=== PATIENT | female | born 1950 | race Caucasian/White ===

== ENCOUNTER 2020-08-12 12:40 | Emergency (ER) | payer MEDICARE, MEDICAID, SELFPAY ==
[2020-08-12 14:16] VITALS: BP 177/98; PULSE 74; RESP 16; TEMP 37; O2SAT 99; BMI 25.0
--- NOTE | 2020-08-12 14:24 | ECG_ITS ---
Test Reason : HEADACHE Blood Pressure : / mmHG Vent. Rate : 072 BPM Atrial Rate : 072 BPM P-R Int : 188 ms QRS Dur : 086 ms QT Int : 426 ms P-R-T Axes : 032 -15 033 degrees QTc Int : 466 ms Normal sinus rhythm Normal ECG When compared with ECG of 22-FEB-2018 09:19, DC interval has decreased Referred By: Britany Araya Electronically Signed By:ANANYA BENJAMIN MD
--- NOTE | 2020-08-12 14:29 | ED_ITS ---
HPI - Headache General Chief Complaint: Headache Stated Complaint: HBP, Headache, Dizziness Time Seen by Provider: 08/12/20 14:06 Source: patient Mode of arrival: ambulatory Limitations: language barrier ( Slovenian-speaking) History of Present Illness HPI Narrative: patient comes to emergency room complaining of a headache and high blood pressure. Patient states since yesterday she has had posterior headache, no neck pain. Patient checked her blood pressure and her monitor read as high . Patient states she usually takes carvedilol 40 mg twice a day, she ran out of carvedilol over a week ago. When patient came in, she states she has dizziness, describes dizziness as feeling funny, denies loss of balance, denies room spinning, denies feeling lightheaded. Related Data Previous Rx's Medication Instructions Recorded carvedilol 25 mg PO BID #14 tab 08/12/20 Allergies Allergy/AdvReac Type Severity Reaction Status Date / Time No Known Allergies Allergy Verified 08/12/20 14:23 Review of Systems Review of Systems: Constitutional : No Weight loss, No Fever, No Chills, No Night Sweats, No Fatigue, No Malaise ENT/Mouth : No Hearing loss, No Ear Pain, No Nasal Congestion, No Sinus Pain, No Hoarseness, No sore throat, No Rhinorrhea, No Swallowing Difficulty Eyes: No Eye Pain, No Swelling, No Redness, No Foreign Body, No Discharge, No Vision Changes Cardiovascular : No Chest Pain, No SOB, No Dyspnea on Exertion, No Orthopnea, No Edema, No Palpitations Respiratory : No Cough, No Sputum, No Wheezing, No Smoke Exposure, No Dyspnea Gastrointestinal : No Nausea, No Vomiting, No Diarrhea, No Constipation, No abd ominal Pain, No Hematochezia, No Melena Genitourinary : no irregular bleeding, No Dysuria, No Urinary Frequency, No Hematuria, No Urinary Incontinence, No Urgency, No Flank Pain, No Urinary Flow Changes, No Hesitancy Musculoskeletal : No joint pain, No Myalgias, No Joint Swelling Skin : No Skin Lesions, No rash Neuro : No Weakness, No Numbness, No Paresthesias, No Loss of Consciousness, Complaining of dizziness and headache Psych : No Anxiety/Panic, No Depression, No SI/HI/AH/VH, No Social Issues, Heme/Lymph: No Bruising, No Bleeding,No Lymphadenopathy Endocrine : No Polyuria, No Polydipsia, No Temperature Intolerance [facility] Past Medical History Medical History Arthritis Diabetes Hyperlipemia Hypertension Social History Social History Advance Directives: No Advance Directives Information Provided: No Physical Exam Vital Signs: Vital Signs: Vital Signs Temp Pulse Resp BP Pulse Ox 08/12/20 15:01 70 130/85 98 08/12/20 14:38 74 159/93 H 08/12/20 14:16 98.6 F 74 16 177/98 H 99 Body Mass Index 25.0 Appearance: Alert. Oriented X3. No acute distress. Eyes: Pupils equal, round and reactive to light. ENT: Pharynx normal. Neck: Normal inspection. Neck supple. No lymph nodes noted. No crepitus CVS: Normal heart rate and rhythm. Pulses normal. Normal S1 and S2 Respiratory: No respiratory distress. Breath sounds normal. No Wheezing. No rales Abdomen: Soft and nontender. No rigidity. No distention. good BS x4 Skin: Skin warm and dry. Normal skin color. Normal skin turgor. Extremities: No lower extremity edema. No lower extremity edema. No Lacerations. No Rash Neuro: Oriented X 3. No motor deficit. No sensory deficit. Moving all extermities. No slurred speech. Course Course Course Narrative: patient received 200 mg of p.o. labetalol, patient's blood pressure 131 systolic, states she feels much better, headache completely gone. MDM - Headache MDM Narrative Medical decision making narrative: I discussed with the patient, 40 mg of Carvedilol twice a day is a high dose, she has not been on her medications for over a week. For 1 week she will be prescribed carvedilol 25 mg twice a day and then she can follow up with the primary care physician and confidential investigator. ECG Data Attestation: I personally reviewed and interpreted this ECG as follows: ( sinus rhythm, heart rate 72, QTC 466, no ST segment elevations or depressions, nonspecific T-wave inversions) Discharge Plan Discharge Clinical Impression: Hypertensive urgency Headache Qualifiers: Headache type: unspecified Headache chronicity pattern: unspecified pattern Intractability: not intractable Qualified Code(s): R51.9 - Headache, unspecified Patient Disposition: Home, Self-Care Instructions: Chronic Hypertension (ED) Additional Instructions: please follow-up with your confidential investigator and your primary care physician. Please follow-up with your primary care physician tomorrow. If you have any worsening or new symptoms, please return to the emergency room or call 911 Prescriptions: New carvedilol 25 mg tablet 25 mg PO BID Qty: 14 RF: 0
[2020-08-12 14:38] VITALS: BP 159/93; PULSE 74
[2020-08-12] MEDS: Labetalol HCL 200 MG TABLET PO (14:38)
[2020-08-12] MEDS: Acetaminophen 325 MG TABLET 650 MG PO (14:38)
--- NOTE | 2020-08-12 14:39 | PC.NURSE ---
PT TRIAGED C/O HEADACHE X 2 DAYS, RAN OUT OF CARVEDILOL 1 WK AGO. BPS RUNNING HIGH AT HOME. REPORTING DIZZINESS, DESCRIBED SPINNING SENSATION. PT A&OX3, SPEAKING IN CLEAR FULL SENTENCES. SKIN COLOUR APPROPRIATE FOR ETHNICITY, WARM, DRY. RESTING COMFORTABLY IN STRETCHER AT THIS TIME. MEDICATED PER EMR.
[2020-08-12 15:01] VITALS: BP 130/85; PULSE 70; O2SAT 98
== END 2020-08-12 15:27 | disposition home or self-care (01) ==
PROVIDERS: Emergency Provider Emergency Medicine; PCP Family Medicine
DX: R51.9 Headache, unspecified (principal); I10 Essential (primary) hypertension; Z79.899 Other long term (current) drug therapy
CPT/HCPCS: 93005; 99283; 99284

== ENCOUNTER → 2020-09-24 12:43 | Outpatient (BNVA) | payer MEDICARE, MEDICAID, SELFPAY | PROVIDERS: PCP Family Medicine; Visit Provider Internal Medicine | DX: I51.89 Other ill-defined heart diseases (principal); I12.9 Hypertensive chronic kidney disease with stage 1 through stage 4 chronic kidney disease, or unspecified chronic kidney disease; N18.9 Chronic kidney disease, unspecified | CPT/HCPCS: 93005; 99212 ==

== ENCOUNTER → 2021-09-26 12:26 | Outpatient (BNVA) | payer MEDICARE, MEDICAID, SELFPAY | PROVIDERS: PCP Family Medicine; Referring Provider Family Medicine; Visit Provider Internal Medicine | DX: I12.9 Hypertensive chronic kidney disease with stage 1 through stage 4 chronic kidney disease, or unspecified chronic kidney disease (principal); N18.9 Chronic kidney disease, unspecified; R07.2 Precordial pain; I51.89 Other ill-defined heart diseases | CPT/HCPCS: 93005; 99212 ==

== ENCOUNTER → 2021-10-03 07:52 | Outpatient (REF) | payer MEDICARE, MEDICAID, SELFPAY ==
--- NOTE | ~2021-10-03 | NM_ITS ---
Myocardial perfusion study Indication: Precordial pain to evaluate for myocardial ischemia Technique: The patient was brought in for a Lexiscan perfusion study on 10/03/2021. Patient performed low-level exercise and was injected 0.4 mg of Lexiscan intravenously. Within a minute of injection, 25 mCi of sestamibi was given intravenously. Images were obtained using the SPECT gamma camera interlaced with the gating device. Images were obtained in supine position. Resting perfusion study was performed on 10/04/2021. Patient was administered 25 mCi of sestamibi intravenously at rest. Images were then obtained in supine position. Images were obtained with and without CT attenuation. Total DLP 85 mGy-cm. Images were processed with the software and compared side to side in short axis, horizontal long axis and vertical long axis views. Findings: The stress perfusion study showed non attenuated images show normal uptake of radiotracer in all segments of LV myocardium. Attenuation corrected images show mildly reduced uptake in the apex of the LV myocardium.. The gated study shows normal LV systolic function with calculated LVEF of 57%. LV cavity is normal in size. The gated study shows normal systolic wall thickening and contraction of segments. Resting study shows no significant change in perfusion in compared to stress perfusion study. Gating at rest reveals normal systolic wall motion with ejection fraction at 65%. The findings are consistent with no clear reversible defect suggestive of ischemia.. NM/NM cardiolite stress test Impression: 1. Myocardial perfusion imaging study shows likely normal myocardial perfusion 2. Gated LVEF is 57% 3. Transient ischemic dilatation not present EKG is nondiagnostic for ischemia
--- NOTE | 2021-10-03 07:56 | CA_ITS ---
Acquisition Time: 2021-10-03 08:35:36 Total Exercise Time: 00:00:41 Test Indications: CP Medications: SEE CHART Protocol: SHAHRIAR Max HR: 105 BPM 70% of Pred: 150 BPM Max BP: 118/070 mmHG Max Work Load: 2.2 METS Exercise stress test with exercise 41 sec of Shahriar protocol, with difficutly keeping up with treadmill and need to slow speed. Treadmill placed in recovery and slowed to 1 MPH, test changed to a pharmacological stress test with Lexiscan injection, with report of chest pressure once in recovery, with normotensive response to injection, with nondiagnostic EKG for ischemia. In recovery her chest pressure continued and at 8 min she was treated with Aminophylline 75mg IVP to reverse Lexiscan with improvement in symptom. Nuclear images pending. Test reviewed with Dr Rowan. Referred By: William Henry Overread By: HERBERTH MEDINA
== END ==
LOC: HO.CARD 07:52
PROVIDERS: PCP Family Medicine; Visit Provider Internal Medicine
DX: R07.2 Precordial pain (principal)
CPT/HCPCS: 78452; 93017; A9500; J0280; J2785

== ENCOUNTER → 2021-10-16 12:17 | Outpatient (BNVA) | payer MEDICARE, MEDICAID, SELFPAY | PROVIDERS: PCP Family Medicine; Referring Provider Family Medicine; Visit Provider Nurse Practitioner Family | DX: R07.2 Precordial pain (principal); I10 Essential (primary) hypertension; E11.9 Type 2 diabetes mellitus without complications; E78.5 Hyperlipidemia, unspecified | CPT/HCPCS: 99212 ==

== ENCOUNTER → 2021-12-18 07:39 | Outpatient (REF) | payer MEDICARE, MEDICAID, SELFPAY ==
--- NOTE | 2021-12-18 07:42 | CA_ITS ---
Transthoracic Echocardiogram Patient (Last, First, Middle): Natalie Mccloud, Gender: Female Date of : 1950 Age: 71 Procedure Date: 12/18/2021 Procedure Type: Transthoracic Echocardiogram Location: OP Height: 152.4 cm Weight: 58.97 kg BSA: 1.55 m2 Heart Rate: bpm BP: 122 / 60 mmHg Veneer Cutter: [id number] Referring MD: Ashleigh Hu [employer]-C Drip Molder: Adalberto Rowan MD Symptoms: R07.2 - Precordial pain Study Quality: Technically Difficult ECG Rhythm: Sinus Conclusions: - 1. Technically difficult study 2. Normal LV systolic function 3. Limited visualization of cardiac valves with trace aortic regurgitation Findings Procedure Information Contrast agent, definity, is being given per protocol without apparent complications. Left Ventricle Normal left ventricular size, thickness, and systolic function. The visually estimated ejection fraction is between 60-65%. Spectral Doppler is indicative of an impaired relaxation filling pattern. E/E prime ratio is between 8 and 15 consistent with indeterminate filling pressures. Right Ventricle The right ventricle was not well visualized. Atria The left atrium is normal in size. Interatrial shunt cannot be excluded. The right atrium was not well visualized. Aortic Valve The aortic valve was not well visualized. There is no aortic valve stenosis. There is trace (trivial) aortic valve regurgitation. Mitral Valve Likely normal mitral valve structure and function. There is no mitral valve stenosis. Pulmonic Valve The pulmonic valve was not well visualized. Tricuspid Valve The tricuspid valve was not well visualized. Tricuspid regurgitation envelope is inadequate for calculation of right ventricular systolic pressure. Great Vessels The aorta was not well visualized. The pulmonary artery was not well visualized. Venous The inferior vena cava is normal in size and collapses greater than 50% with inspiration. Pericardium/Pleural The pericardium was not well visualized. Prior Study Comparison No significant change compared to prior study dated: 05/21/2017. Measurements 2D Linear Measurements IVSd: 0.91 0.6-0.9/0.6-1.0 cm LVIDd: 4.35 3.9-5.3/4.2-5.9 cm LVIDd Index: 2.81 2.4-3.2/2.2-3.1 cm/m2 LVIDs: 2.69 2.0-3.6 cm LVPWd: 1.07 0.7-1.1 cm Ao Root: 3.50 2.1-3.5 cm LA Diam: 2.70 2.7-3.8/3.0-4.0 cm LAIDs Index: 1.74 1.5-2.3 cm/m2 LV Mass: 177.93 67-162/88-224 g LV Mass Index: 114.79 43-95/49-115 g/m2 LVOT Diam: 2.00 3.0+(-)1.3 cm Mitral Valve MV Pk E: 0.51 MV PK A: 0.76 MV Decel Time: 190.00 E/A: 0.70 E'Lateral: 4.90 E'Medial: 4.46 E/E' Med: 11.50 E/E' Lat: 10.50 PHT: 56.00 MVA PHT: 3.93 Decel Clark: 2.71 Aortic Valve AoV Pk Mike: 1.11 AoV Mn Mike: 0.75 AoV VTI: 0.26 AoV Pk Grad: 5.00 Aov Mn Grad: 3.00 RANDY Cont.VTI: 2.38 LVOT LVOT Pk Mike: 0.76 LVOT Mn Mike: 0.52 LVOT VTI: 0.19 LVOT Pk Grad: 2.00 LVOT Mn Grad: 1.00 LVOT Diam: 2.00 LVOT Area: 3.14 Diastolic Function MV Pk E: 0.51 MV Pk A: 0.76 E/A: 0.70 E'Medial: 4.46 E/E' Med: 11.50 E' Laterial: 4.90 E/E' Lat: 10.50 Right Ventricle TAPSE (mm): 22.00 TVS' Mike: 10.00 Tricuspid Valve TR Pk Mike: 1.57 TR Pk Grad: 10.00 Great Vessels Aorta Ao Root-2D: 3.50 2.0-3.7 cm Pulmonary Valve PV Pk Mike: 0.92 Peak PV Grad: 3.00 Updated in Other Vendor System with Status of Final Adalberto Rowan MD electronically signed on 12/18/2021 9:20:11 PM with status of Final
== END ==
LOC: HO.CARD 07:39
PROVIDERS: PCP Family Medicine; Visit Provider Nurse Practitioner Family
DX: R07.2 Precordial pain (principal)
CPT/HCPCS: 93306; Q9957

== ENCOUNTER → 2022-01-15 13:36 | Outpatient (BNVA) | payer MEDICARE, MEDICAID, SELFPAY | PROVIDERS: PCP Family Medicine; Referring Provider Family Medicine; Visit Provider Nurse Practitioner Family | DX: R07.2 Precordial pain (principal); E11.9 Type 2 diabetes mellitus without complications; E78.5 Hyperlipidemia, unspecified; I10 Essential (primary) hypertension | CPT/HCPCS: 99212 ==

== ENCOUNTER 2022-02-04 08:14 | Emergency (ER) | payer MEDICARE, MEDICAID, SELFPAY ==
--- NOTE | ~2022-02-04 | XR_ITS ---
EXAMINATION: XR LUMBOSACRAL SPINE CLINICAL INFORMATION: Right back pain radiating to leg COMPARISON: CT abdomen and pelvis of September 20, 2019 TECHNIQUE: Three views of the lumbosacral spine. FINDINGS: There are 5 nonrib bearing lumbar vertebra. Pedicles are intact. Mild narrowing of the L5-S1 disc space. No acute fracture, spondylolisthesis, spondylolysis identified. No significant sacroiliac joint abnormality is present. There is some mildly increased density about the right L5-S1 facet joint consistent with some degree of facet arthropathy. There is a 4 mm calcification about the right upper quadrant which appears to be more superior than I would expect for the right kidney and may represent gallbladder calcification. This was present on previous study of February 28, 2013. 2 calcified splenic artery aneurysms are evident. Psoas margins intact. 2 mm calcification seen just inferior to the left L1 transverse process of uncertain significance. XR/XR lumbar spine 2-3V IMPRESSION: No acute fracture, spondylolisthesis, spondylolysis of the lumbar spine. Lumbar spondylosis L5-S1 as described. Probable cholelithiasis. 2 calcified splenic artery aneurysms.
[2022-02-04 09:07] VITALS: BP 138/85; PULSE 66; RESP 16; TEMP 36.9; O2SAT 99; BMI 22.6
--- NOTE | 2022-02-04 09:32 | ED.BACK ---
HPI - Back Pain/Injury General Chief Complaint: Back Pain/Injury Stated Complaint: Back pain/leg pain Time Seen by Provider: 02/04/22 09:28 Source: patient Mode of arrival: ambulatory Limitations: language barrier (Japanese-speaking medical assistant supervisor utilized) History of Present Illness HPI Narrative: Patient presents to the emergency department for evaluation of right lower back pain radiating down to the buttock and leg x2 days. Denies any history of similar pain in the past. She has been taking Tylenol with no relief. Denies recent precipitating injury, fevers, chills, burning with micturition, urinary frequency/urgency/hesitancy, bladder or bowel dysfunction, numbness or tingling of the perineum or bilateral legs. Denies any recent surgical procedures, any known immune compromising conditions, personal history of cancer, or IV drug usage. MD elicited complaint: back pain Related Data Home Medications Medication Instructions Recorded Confirmed alprazolam 0.25 mg tablet 0.25 mg PO DAILY PRN 09/24/20 01/17/22 chlorthalidone 25 mg tablet 25 mg PO tab 09/24/20 01/17/22 hydroxyzine HCl 25 mg tablet 25 mg PO TID 09/24/20 01/17/22 lisinopril 30 mg tablet 30 mg PO DAILY 09/24/20 01/17/22 cholecalciferol (vitamin D3) 50 0 mcg PO 09/26/21 01/17/22 mcg (2,000 unit) tablet ezetimibe 10 mg tablet 10 mg PO DAILY 09/26/21 01/17/22 glipizide 2.5 mg tablet, extended 2.5 mg PO QPM 09/26/21 01/17/22 release 24 hr pravastatin 40 mg tablet 40 mg PO DAILY tab 09/26/21 01/17/22 Previous Rx's Medication Instructions Recorded carvedilol 25 mg tablet 25 mg PO BID #14 tab 08/12/20 tizanidine 2 mg tablet 2 mg PO BEDTIME PRN #7 tab 02/04/22 Allergies Allergy/AdvReac Type Severity Reaction Status Date / Time No Known Allergies Allergy Verified 10/16/21 12:36 Review of Systems Review of Systems: Constitutional: No weight loss, fever, chills, weakness or fatigue. HEENT: No visual loss, blurred vision, double vision. No hearing loss, sneezing, congestion, runny nose or sore throat. Skin: No rash or itching. Cardiovascular: No chest pain, chest pressure or chest discomfort. No palpitations or pedal edema. Respiratory: No shortness of breath, cough or sputum production. Gastrointestinal: No anorexia, nausea, vomiting or diarrhea. No abdominal pain or blood in stool. Genitourinary: No burning micturition. No urinary frequency or incontinence. Neurologic: No headache, dizziness, syncope, unilateral weakness, ataxia, numbness or tingling in the extremities. No change in bowel or bladder control. Musculoskeletal: + Back pain as noted in HPI. No joint pain or stiffness. Hematologic: No bleeding or bruising. Lymphatics: No enlarged lymph nodes. Psychiatric:No depression or anxiety. Endocrine: No reports of sweating. No cold or heat intolerance. No polyuria or polydipsia. FOR[facility]LY [facility], [facility] Past Medical History Attestation statement: The following information was validated with the patient. Source: old records reviewed Medical History Arthritis Chronic kidney disease, unspecified Diabetes Diastolic dysfunction Essential hypertension Hyperlipemia Hypertension Surgical History History of colonoscopy (~04/2015) Family History Family History Father No problems noted. Mother No problems noted. Social History Social History Patient Tobacco Use Status: Never used Tobacco Advance Directives: No Advance Directives Information Provided: No Physical Exam Vital Signs: Vital Signs: Last Vital Signs Temp 98.4 F 02/04/22 09:07 Pulse 66 02/04/22 09:07 Resp 16 02/04/22 09:07 BP 138/85 02/04/22 09:07 Pulse Ox 99 02/04/22 09:07 BMI result Body Mass Index 22.6 Vital signs have been reviewed as normal and appeared to be correct. Blood pressure normal.? Heart rate normal.? Respiration rate normal. Temperature normal.? Oxygen saturation normal. Appearance: Alert.?Oriented to person, place and time. No acute distress.?Normal affect. Eyes: Pupils equal, round and reactive to light.? ENT: Pharynx normal.?? Neck: Normal inspection.? Neck supple.?? CVS: Heart sounds normal. Normal heart rate and rhythm.? Pulses normal; bilateral radial pulses 2+, bilateral posterior tibial/dorsalis pedis pulses 2+.? Respiratory: No respiratory distress.? Lung sounds clear to auscultation bilaterally?? Abdomen: Soft and non-tender. Normoactive bowel sounds. No pulsatile mass.?? Skin: Skin warm and dry.? Normal skin color.? Normal skin turgor.?? Extremities: No lower extremity edema.? No calf ttp? Back: + mild paraspinal muscular tenderness from lumbar region to coccyx. No CVA tenderness. No midline spinal tenderness, step-off's, or deformity. Full ROM intact in bilateral lower extremities. Straight leg test positive on right; Straight leg test negative on left. No rashes, lesions, areas of induration or fluctuance, or signs of infection noted. Neuro: Moves all extremities spontaneously. 5/5 strength in hip extension/flexion, abduction, adduction. Sensation to light touch intact bilaterally. Patellar and Achilles reflex 2+ bilaterally. No ataxia, gait normal and steady.. No focal neuro deficits. Rectal tone intact. Course Course Course Narrative: Patient is a 72-year-old female with a past medical history of arthritis, chronic kidney disease, diabetes, hypertension, hyperlipidemia presenting for evaluation of right lower back pain radiating into the right buttock and leg without precipitating injury. Patient received Tizanadine while in the emergency department with improvement in pain, requesting a prescription to go home with as the pain is making it very difficult for her to sleep at night, discussed that she is not to take alprazolam will take this medication, drink alcohol, or drive. Advised that the medication may make her drowsy, and therefore there is potential for increased risk of fall. X-ray of the lumbar spine reveals no acute fracture, lumbar spondylosis of L5-S1. Incidental finding of cholelithiasis and 2 calcified splenic artery aneurysms, patient is without abdominal pain, tenderness on examination, discussed these findings with patient and advised outpatient follow-up with vascular for further management. Pain is most consistent with muscular pain/ radiculopathy, although cannot completely exclude herniated disc. On neurological exam there are no deficits. Not consistent with spinal fracture, spinal infection, epidural abscess, AAA, epidural abscess, or dissection. No high risk past medical history including incontinence, fever, immunosuppression, recent surgery or lumbar puncture, coagulopathy, significant trauma, recent unintentional weight loss, pulsatile mass, history of cancer, history of TB, history of IV drug use that would warrant MRI or CT. Not consistent with pyelonephritis, urinary tract infection, renal calculi, pelvic infection, appendicitis, diverticulitis. On exam no concern for cauda equina syndrome. Plan for discharge home, and follow-up with primary care provider, reviewed reasons to return back to the emergency department, and patient agreed with plan. MDM - Back Pain/Injury Medical Records Attestation: I reviewed the patient's medical records. Lab Data Attestation: I reviewed the patient's lab results. Labs: Lab Results 02/04/22 Range/Units 10:03 Urine Color YELLOW Urine Appearance CLEAR Urine pH 5.5 (5.0-8.0) Ur Specific [place] 1.015 (1.005-1.025) Urine Protein NEG (NEG-TRACE) MG/DL Urine Glucose (UA) NEG (NEG) MG/DL Urine Ketones NEG (NEG) MG/DL Urine Blood 2+ H (NEG) Urine Nitrite NEG (NEG) Ur Leukocyte Esterase NEG (NEG) Urine RBC 1-4 (0) /HPF Urine WBC 0-2 (0-4) /HPF Ur Squamous Epith Cells 1+ /LPF Urine Bacteria NONE /LPF Imaging Data XR lumbar spine: Radiologist's impression: XR/XR lumbar spine 2-3V IMPRESSION: No acute fracture, spondylolisthesis, spondylolysis of the lumbar spine. Lumbar spondylosis L5-S1 as described. ? Probable cholelithiasis. ? 2 calcified splenic artery aneurysms. Discharge Plan Discharge Clinical Impression: Right lumbar radiculopathy, Splenic artery aneurysm, Hematuria Patient Disposition: Home, Self-Care Instructions: Hematuria (ED), Acute Low Back Pain (ED), Lumbar Radiculopathy (ED), Lower Back Exercises (ED) Additional Instructions: Please contact her primary care provider to schedule a follow-up visit within 1 week. As we discussed you may use Tylenol as needed for your back pain. You have been given a prescription for tizanidine, this is a muscle relaxer, it should be used with extreme caution, and only at bedtime. It may make you drowsy, you should not drive, drink alcohol while taking this medication. In addition, as we discussed you are not to take your alprazolam at night if you are going to take the tizanidine. If you take the 2 together it may worsen your drowsy mass and may lead to possible falls or further injury. Your urine continues to have microscopic blood present. It is unclear whether you were referred to a urologist from your primary care provider, you should discuss this with them at your follow-up visit next week, as you may need further evaluation for this by a specialist. There was an incidental finding of 2 splenic artery calcified aneurysms. For this you need to follow-up with vascular specialist, please contact our office to schedule an appointment. please return to the emergency department for further evaluation if he develops abdominal pain, shoulder pain, dizziness, lightheadedness, palpitations, weakness or any new or concerning symptoms. Prescriptions: New tizanidine 2 mg tablet 2 mg PO BEDTIME PRN (Reason: muscle spasticity) Qty: 7 0RF No Action carvedilol 25 mg tablet 25 mg PO BID Qty: 14 0RF Rx Instructions: must administer with a meal/food alprazolam 0.25 mg tablet 0.25 mg PO DAILY PRN0RF hydroxyzine HCl 25 mg tablet 25 mg PO TID 0RF lisinopril 30 mg tablet 30 mg PO DAILY 0RF chlorthalidone 25 mg tablet 25 mg PO 0RF pravastatin 40 mg tablet 40 mg PO DAILY 0RF ezetimibe 10 mg tablet 10 mg PO DAILY 0RF cholecalciferol (vitamin D3) 50 mcg (2,000 unit) tablet 0 mcg PO 0RF glipizide 2.5 mg tablet extended release 24hr 2.5 mg PO QPM 0RF Referrals: Graham Jay MD [Physician] - 1 week (Calcified splenic artery aneurysm) Fani Goodrich MD [Primary Care Provider] - 1 week Interventions: ED Discharge Assessment Last Done: 02/04/22 13:04 Discharge Date/Time: 02/04/22 13:06
[2022-02-04] MEDS: TiZANidine HCL 4 MG TABLET PO (10:08)
[2022-02-04 10:21] LABS: Appearance Urine CLEAR; Color Urine YELLOW; Glucose Urine UA NEG (NEG); Leukocyte Esterase Urine NEG (NEG); Nitrite Urine NEG (NEG); PH 5.5 (5.0-8.0); Specific Gravity - Urine 1.015 (1.005-1.025); UACC Culture Trigger NO; Urine Blood 2+ (NEG); Urine Ketones NEG (NEG); Urine Protein NEG (NEG-TRACE)
[2022-02-04 11:48] LABS: Squamous Epithelial Cell Urine 1+ /LPF; WBC Urine 0-2 /HPF (0-4)
== END 2022-02-04 13:06 | disposition home or self-care (01) ==
PROVIDERS: Nurse Practitioner Family; Emergency Provider Emergency Medicine; PCP Family Medicine
DX: M54.16 Radiculopathy, lumbar region (principal); R31.9 Hematuria, unspecified; M54.50 Low back pain, unspecified; M79.605 Pain in left leg; M79.604 Pain in right leg; Z79.899 Other long term (current) drug therapy
CPT/HCPCS: 72100; 81001; 99283; 99284

== ENCOUNTER 2022-02-05 12:20 | Emergency (ER) | payer MEDICARE, MEDICAID, SELFPAY ==
[2022-02-05 13:02] VITALS: BP 147/89; PULSE 62; RESP 17; TEMP 36.3; O2SAT 98; BMI 22.5
--- NOTE | 2022-02-05 14:50 | ED.GENADULT ---
HPI - General Adult General Chief complaint: Extremity Problem Stated complaint: continuous pain in right leg Time Seen by Provider: 02/05/22 14:22 Source: patient Mode of arrival: ambulatory Limitations: no limitations History of Present Illness HPI narrative: 72 y/o female with history of HTN, HLD, DM, CKD, HFpEF, hx back pain who presents back to the ER for a 2nd time with c/o right lower back pain that radiated into the buttock and posterior right thigh. She was seen here yesterday for the same, had a lumbar x-ray showing some spondylosis of L5-S1 and she was discharged with low-dose tizanidine with no improvement. She reports she has also been taking Tylenol with minimal relief. She states the pain is worse at night when she tries to lie down and she not get any sleep last night because of the pain. Pain is also worse when changing positions and walking. She denies any urinary symptoms. She denied any fever chills. She denies any bowel or bladder incontinence. She denies any saddle paresthesias. MD complaint: right low back pain radiating into buttocks and leg Onset (ago): week(s) Location: back Radiation: non-radiation Severity: severe Severity scale (1-10): 8 Quality: aching and sharp Pain Consistency: constant Relieving factors: immobilization Exacerbating factors: movement Associated symptoms: denies other symptoms Treatments prior to arrival: none Related Data Home Medications Medication Instructions Recorded Confirmed alprazolam 0.25 mg tablet 0.25 mg PO DAILY PRN 09/24/20 01/17/22 chlorthalidone 25 mg tablet 25 mg PO tab 09/24/20 01/17/22 hydroxyzine HCl 25 mg tablet 25 mg PO TID 09/24/20 01/17/22 lisinopril 30 mg tablet 30 mg PO DAILY 09/24/20 01/17/22 cholecalciferol (vitamin D3) 50 0 mcg PO 09/26/21 01/17/22 mcg (2,000 unit) tablet ezetimibe 10 mg tablet 10 mg PO DAILY 09/26/21 01/17/22 glipizide 2.5 mg tablet, extended 2.5 mg PO QPM 09/26/21 01/17/22 release 24 hr pravastatin 40 mg tablet 40 mg PO DAILY tab 09/26/21 01/17/22 Previous Rx's Medication Instructions Recorded carvedilol 25 mg tablet 25 mg PO BID #14 tab 08/12/20 tizanidine 2 mg tablet 2 mg PO BEDTIME PRN #7 tab 02/04/22 oxycodone 5 mg tablet 2.5 mg PO Q8H PRN #5 tab 02/05/22 prednisone 20 mg tablet 40 mg PO DAILY #10 tab 02/05/22 Allergies Allergy/AdvReac Type Severity Reaction Status Date / Time No Known Allergies Allergy Verified 10/16/21 12:36 Review of Systems Review of Systems: Constitutional: No Fever, No Chills Cardiovascular: No Chest Pain, No SOB Gastrointestinal: No Nausea, No Vomiting, No abdominal Pain Genitourinary: No Dysuria, No Urinary Frequency, No Hematuria Musculoskeletal: + joint pain, +Myalgias Skin: No Skin Lesions, No rash Neuro: No Weakness, No Numbness, No Dizziness, No Headache Psych: No Anxiety/Panic, No Depression Heme/Lymph: No Bruising, No Lymphadenopathy Endocrine: No Polyuria, No Polydipsia [facility] Past Medical History Medical History Arthritis Chronic kidney disease, unspecified Diabetes Diastolic dysfunction Essential hypertension Hyperlipemia Hypertension Surgical History History of colonoscopy (~04/2015) Family History Family History Father No problems noted. Mother No problems noted. Social History Social History Patient Tobacco Use Status: Never used Tobacco Advance Directives: No Advance Directives Information Provided: No Physical Exam ED Vital Signs: Vital Signs - 24 hr 02/05/22 13:02 Temperature 97.4 F Pulse Rate 62 Respiratory Rate 17 Blood Pressure 147/89 H Pulse Oximetry 98 BMI result Body Mass Index 22.5 Appearance: Alert. Oriented X3. No acute distress. HEENT: normal inspection CVS: Normal heart rate and rhythm. Pulses normal. Respiratory: No respiratory distress. Skin: Skin warm and dry. Normal skin color. Normal skin turgor. No rashes. Back: normal inspection, right low lumbar soft tissue tenderness, +SI joint tenderness on the right. +straight leg raise test at 45 degrees. No CVA tenderness Extremities: normal inspection x4 Neuro: Oriented X 3. No motor deficit. No sensory deficit. Steady gait Course Course Course Narrative: 72 y/o female presents back to the ER with ongoing right lower back pain radiating into the right buttock and posterior thigh. Seen here for the same. XR lumbar spine showing no acute fracture, spondylolisthessi, spondylolysis of the lumbar spine. Lumbar spondylosis L5-S1. Discharged with tizanidine 2 mg PRN with no relief. Patient has no red flag symptoms of LBP at this time. Exam is consistent with lumbar radiulopathy. Will give dose of narcotic and prednisone and reassess. Reevaluation(s) Reevaluation #1: Pain improved after medications. She is stable for discharge home with a short course of low-dose oral narcotics and plan to follow-up with her PCP as soon as possible for further management and monitoring. Patient agrees with plan all questions were answered with staff forester. Stable for DC. Critical Care Time Critical Care Time Critical Care Time: No Discharge Plan Discharge Clinical Impression: Acute lumbar radiculopathy Patient Disposition: Home, Self-Care Instructions: Lumbar Radiculopathy (ED), Lower Back Exercises (ED) Additional Instructions: No bending, lifting or twisting. Use ice several times per day for 20 minutes at a time for the next 48 hours and then change to heat. Take medications as prescribed to help with pain and discomfort. Follow up with your Primary Care Doctor this week. If your pain worsens, if you develop new numbness, tingling, weakness, loss of function or incontinence call 911 or come back to the ER right away for evaluation. Sin doblar, levantar o torcer. Use hielo varias veces al d?a juan david 20 minutos a la vez juan david las pr?ximas 48 horas y luego cambie a calor. [place] los medicamentos seg?n lo prescrito para ayudar con el dolor y la incomodidad. Itzel un seguimiento con campbell m?dico de atenci?n primaria esta semana. Si campbell dolor empeora, si desarrolla un nuevo entumecimiento, hormigueo, debilidad, p?rdida de funci?n o incontinencia, llame al 911 o regrese a la marisela de emergencias de inmediato para nickolas evaluaci?n. Prescriptions: New oxycodone 5 mg tablet 2.5 mg PO Q8H PRN (Reason: severe pain (scale score 7-10)) Qty: 5 0RF prednisone 20 mg tablet 40 mg PO DAILY Qty: 10 0RF No Action carvedilol 25 mg tablet 25 mg PO BID Qty: 14 0RF Rx Instructions: must administer with a meal/food tizanidine 2 mg tablet 2 mg PO BEDTIME PRN (Reason: muscle spasticity) Qty: 7 0RF alprazolam 0.25 mg tablet 0.25 mg PO DAILY PRN0RF hydroxyzine HCl 25 mg tablet 25 mg PO TID 0RF lisinopril 30 mg tablet 30 mg PO DAILY 0RF chlorthalidone 25 mg tablet 25 mg PO 0RF pravastatin 40 mg tablet 40 mg PO DAILY 0RF ezetimibe 10 mg tablet 10 mg PO DAILY 0RF cholecalciferol (vitamin D3) 50 mcg (2,000 unit) tablet 0 mcg PO 0RF glipizide 2.5 mg tablet extended release 24hr 2.5 mg PO QPM 0RF Interventions: ED Discharge Assessment Last Done: 02/05/22 16:37 Discharge Date/Time: 02/05/22 16:40 Print Language: Malawian
[2022-02-05] MEDS: Lidocaine 4 % Patch ADH..PATCH 1 PATCH TRANSDERMA (15:28)
[2022-02-05] MEDS: HYDROcodone Bit/Acetam 5/325 TABLET 1 TAB PO (15:29)
[2022-02-05] MEDS: Ondansetron ODT 4 MG TAB.RAPDIS TRANSLINGU (15:29)
[2022-02-05] MEDS: predniSONE 20 MG TABLET 40 MG PO (15:29)
== END 2022-02-05 16:40 | disposition home or self-care (01) ==
PROVIDERS: Emergency Provider Emergency Medicine
DX: M54.16 Radiculopathy, lumbar region (principal); E11.22 Type 2 diabetes mellitus with diabetic chronic kidney disease; I13.0 Hypertensive heart and chronic kidney disease with heart failure and stage 1 through stage 4 chronic kidney disease, or unspecified chronic kidney disease; N18.9 Chronic kidney disease, unspecified; I50.30 Unspecified diastolic (congestive) heart failure
CPT/HCPCS: 99283; 99284

== ENCOUNTER 2022-03-03 12:19 | Emergency (ER) | payer MEDICARE, MEDICAID, SELFPAY ==
--- NOTE | ~2022-03-03 | CT_ITS ---
EXAMINATION: CT ABDOMEN AND PELVIS WITHOUT CONTRAST CLINICAL INFORMATION: Nausea, vomiting and diarrhea with generalized abdominal pain COMPARISON: CT abdomen pelvis 09/20/2019 TECHNIQUE: Multidetector volumetric imaging was performed from the superior aspect of the liver through the pubic symphysis. Sagittal and coronal reformatted images were obtained on the technologist's workstation. This CT examination was performed using dose optimization techniques as appropriate, variously including the following: *Automated exposure control *Adjustment of mA and/or kV according to patient size (this includes techniques or standardized protocols for targeted exams where dose is matched to indication/reason for exam; i.e. extremities or head) *Use of iterative reconstruction technique DLP: 473 mGy-cm FINDINGS: LUNG BASES: The visualized lung bases are unremarkable. LIVER, GALLBLADDER, AND BILIARY TREE: The liver is enlarged at 18.6 cm in greatest length and demonstrates decreased attenuation consistent with hepatic steatosis. A focal fatty sparing adjacent to the gallbladder fossa. No focal hepatic lesion or biliary ductal dilatation is present. The gallbladder is unremarkable with no evidence of radiopaque gallstones, gallbladder wall thickening, or obvious pericholecystic inflammatory changes. PANCREAS: Unremarkable. SPLEEN: 2 calcified splenic artery aneurysms are again seen and unchanged at 1.6 to 1.7 cmr. ADRENAL GLANDS: Small left water density adrenal nodule unchanged consistent with benign adenoma. The right adrenal gland is normal. KIDNEYS AND URETERS: The kidneys are normal in size, shape, and attenuation. No hydronephrosis, hydroureter, or calculi seen. No perinephric stranding. BLADDER: Unremarkable. GASTROINTESTINAL TRACT: The small and large bowel are unremarkable. The appendix is unremarkable. Small 1 cm rim calcified omental nodular density may represent an avulsed epiploic appendage. This is not a worrisome or concerning finding. ABDOMINAL WALL: No significant hernia is appreciated. LYMPH NODES: No retroperitoneal lymphadenopathy. VASCULAR: Calcific atherosclerotic changes present in aorta without aneurysm. PELVIC VISCERA: An anteverted uterus is present. An abnormal adnexal mass is not seen. No free fluid is present. OSSEOUS STRUCTURES: Minimal degenerative changes present spine. CT/CT abdomen pelvis wo IV con IMPRESSION: 1. A cause for the patient's nausea, vomiting, diarrhea and generalized abdominal pain has not been found. 2. Incidental note made of mildly enlarged fatty liver, stable calcified splenic artery aneurysm, stable small left adrenal nodule (benign) and other findings described above. Fleischner guidelines were followed.
[2022-03-03 13:38] VITALS: BP 109/78; PULSE 89; RESP 18; TEMP 36.3; O2SAT 96; BMI 26.4
[2022-03-03 14:11] LABS: COVID-19 Test Negative (Negative); IDNOW Serial# 16C4AD1C; IDNOW Serial# 9DB6401D; Influenza A Negative (Negative); Influenza B2 Negative (Negative)
[2022-03-03 14:31] LABS: Basophils Percent Auto 0.3 % (0-2); Eosinophils Absolute Auto 0.1 X10*3/uL (0.0-0.4); Eosinophils Percent Auto 1.5 % (0-4); Hematocrit 36.8 % (37.0-47.0); Hemoglobin 12.3 g/dl (12.0-16.0); Imm Gran Abs Auto 0.01 X10*3/uL (0.00-0.03); Imm Gran Pct Auto 0.2 % (0.0-0.4); Lymphocytes Absolute Auto 0.3 X10*3/uL (1.2-4.9); Lymphocytes Percent Auto 4.2 % (20-40); MANUAL DIFF FLAG NO; Mean Corpuscular HGB Conc 33.4 g/dl (31.0-35.0); Mean Corpuscular Hemoglobin 30.7 pg (27.0-33.0); Mean Corpuscular Volume 91.8 fL (80.0-98.0); Mean Platelet Volume 9.7 fL (9.4-12.3); Monocytes Absolute Auto 0.2 X10*3/uL (0.1-1.2); Neutrophils Absolute Auto 5.3 x10*3/uL (2.0-8.3); Neutrophils Percent Auto 89.8 % (45-73); Platelet Count 215 X10*3/uL (160-400); Red Blood Count 4.01 X10*6/uL (4.20-5.50); Red Cell Distribution Width 13.1 % (11.0-16.0); White Blood Count 5.9 X10*3/uL (4.8-10.8)
[2022-03-03 14:48] LABS: Anion Gap 16 (12-20); Blood Urea Nitrogen 26 mg/dL (9-16); Calcium 10.1 mg/dL (8.4-10.2); Carbon Dioxide 21 mmol/L (22-29); Chloride 108 mmol/L (96-108); Creatinine Clr Calc Pharmacy 30.1; Estimated Glomerular Filt Rate 37; Glucose Random 153 mg/dL (60-115); Potassium 4.2 mmol/L (3.3-5.1); Sodium 141 mmol/L (135-145)
[2022-03-03 22:06] LABS: Alanine Aminotransferase 11 U/L (0-31); Albumin Level 4.4 g/dL (3.5-5.0); Alkaline Phosphatase 41 U/L (39-117); Aspartate Amino Transferase 13 U/L (5-31); Bilirubin Direct 0.2 mg/dL (0.0-0.5); Bilirubin Total 0.6 mg/dL (0.0-1.0); Lipase 44 U/L (8-78); Total Protein 8.2 g/dL (6.5-8.0)
[2022-03-03] MEDS: Ondansetron ODT 4 MG TAB.RAPDIS TRANSLINGU (22:37)
[2022-03-03] MEDS: Ketorolac Tromethamine 60 MG/2 ML VIAL IM (22:38)
--- NOTE | 2022-03-03 23:56 | ED_ITS ---
HPI - Nausea/Vomiting/Diarrhea General Chief complaint: Nausea/Vomiting/Diarrhea Stated complaint: headache, vomiting Time Seen by Provider: 03/03/22 21:42 Source: patient and family Mode of arrival: ambulatory Limitations: language barrier (Yoruba-speaking) History of Present Illness HPI Narrative: 72-year-old female who is Yoruba-speaking with a past medical history of hypertension, hyperlipidemia, diabetes, CKD, HFpEF, chronic back pain/sciatica presenting to the ED with complaints of nausea/vomiting with generalized abdominal pain and diarrhea that started this morning at 1am with intermittent headaches. She denies any recent travel or sick contacts. She denies any measured fevers, chills, dizziness, neck pain/stiffness, loss of taste or smell, nasal congestion/rhinorrhea, cough, chest pain, shortness of breath, dyspnea on exertion, orthopnea, palpitations, paresthesias, worsening back pain, dysuria, hematuria, abnormal vaginal discharge, rashes, possible bad food exposure, others with similar symptoms, black or bloody stools, recent antibiotic usage, recent hospitalization, recent surgery or procedure, trauma,, new medications, drug usage or any other symptoms complaints or concerns at this time. MD elicited complaint: nausea, vomiting, diarrhea and abdominal pain Onset (ago): hour(s) (Prior to arrival) Description of vomiting: watery and bilious Description of diarrhea: watery Associated abdominal pain: Yes Location of pain: diffuse Pain consistency: constant Severity: mild Quality: cramping and aching Exacerbating factors: none Relieving factors: none Associated symptoms: denies other symptoms Related Data Home Medications Medication Instructions Recorded Confirmed alprazolam 0.25 mg tablet 0.25 mg PO DAILY PRN 09/24/20 01/17/22 chlorthalidone 25 mg tablet 25 mg PO tab 09/24/20 01/17/22 hydroxyzine HCl 25 mg tablet 25 mg PO TID 09/24/20 01/17/22 lisinopril 30 mg tablet 30 mg PO DAILY 09/24/20 01/17/22 cholecalciferol (vitamin D3) 50 0 mcg PO 09/26/21 01/17/22 mcg (2,000 unit) tablet ezetimibe 10 mg tablet 10 mg PO DAILY 09/26/21 01/17/22 glipizide 2.5 mg tablet, extended 2.5 mg PO QPM 09/26/21 01/17/22 release 24 hr pravastatin 40 mg tablet 40 mg PO DAILY tab 09/26/21 01/17/22 Previous Rx's Medication Instructions Recorded carvedilol 25 mg tablet 25 mg PO BID #14 tab 08/12/20 tizanidine 2 mg tablet 2 mg PO BEDTIME PRN #7 tab 02/04/22 oxycodone 5 mg tablet 2.5 mg PO Q8H PRN #5 tab 02/05/22 prednisone 20 mg tablet 40 mg PO DAILY #10 tab 02/05/22 dicyclomine 20 mg tablet 20 mg PO BID #14 tab 03/03/22 ondansetron 4 mg disintegrating 4 mg PO Q6H #14 tab 03/03/22 tablet Allergies Allergy/AdvReac Type Severity Reaction Status Date / Time No Known Allergies Allergy Verified 03/03/22 13:38 Review of Systems Review of Systems: Constitutional : No Fever, No Chills, No Night Sweats, No Fatigue, No Malaise Cardiovascular : No Chest Pain, No SOB Respiratory : No Cough, No Sputum, No Wheezing, No Dyspnea Gastrointestinal : + Nausea, + Vomiting, + Diarrhea, + abdominal Pain, No Hematochezia, No Melena Genitourinary : No irregular bleeding, No Dysuria, No Urinary Frequency, No Hematuria,No Urinary Incontinence, No Urgency, No Flank Pain Musculoskeletal : No joint pain, No Myalgias, No Joint Swelling Skin : No Skin Lesions, No rash Neuro : No Weakness, No Numbness, No Paresthesias, No Loss of Consciousness, No Dizziness, No Headache Heme/Lymph: No Lymphadenopathy Endocrine : No Temperature Intolerance Yes all other systems are reviewed and are negative COUNT INCLUDES THE [facility] Past Medical History Attestation statement: The following information was validated with the patient. Medical History Arthritis Chronic kidney disease, unspecified Diabetes Diastolic dysfunction Essential hypertension Hyperlipemia Hypertension Surgical History History of colonoscopy (~04/2015) Family History Family History Father No problems noted. Mother No problems noted. Social History Social History Patient Tobacco Use Status: Never used Tobacco Advance Directives: No Advance Directives Information Provided: No Physical Exam Vital Signs: Vital Signs: Last Vital Signs Temp 97.4 F 03/03/22 13:38 Pulse 84 03/04/22 00:18 Resp 14 03/04/22 00:18 BP 101/66 03/04/22 00:18 Pulse Ox 97 03/04/22 00:18 BMI result Body Mass Index 26.4 vital signs have been reviewed as normal and appeared to be correct. Blood pressure normal. Heart rate normal. Respiration rate normal. Temperature normal. Oxygen saturation normal. Appearance: Alert. Oriented X3. No acute distress. Head: Normal external exam. Normocephalic. Eyes: PERRLA. EOMI. Conjunctiva and sclera normal. Eyelids normal. ENT: Pharynx normal. Uvula midline. Moist mucous membranes. No trismus noted. No drooling noted. No muffled voice noted. Neck: Normal inspection. Neck supple. FROM. No adenopathy. No meningeal signs. CVS: Normal heart rate and rhythm. Heart sound normal. No murmurs noted. Pulses normal throughout. Respiratory: No respiratory distress. Painless inspiration. Breath sounds normal. No wheezes/rales/rhonchi noted. Chest nontender. No accessory muscle usage noted or decreased air movement noted. Abdomen: Soft and mild tenderness palpation diffusely. Nondistended. No guarding. No rigidity. Bowel sounds normal in all 4 quadrants. No distention noted. No organomegaly noted. No visible injury noted. No rebound tenderness. Negative Rovsing sign. Negative obturator's sign. Negative psoas sign. Negative Kinsey sign. Back: No CVA tenderness. Full range of motion noted. Skin: Skin warm and dry. Normal skin color. Normal skin turgor. No rashes/lesions/lacerations noted. Extremities: Extremities exhibit normal range of motion. Extremities nontender. Neuro: Oriented X 3. No motor deficit. No sensory deficit. Reflexes normal. Normal steady gait. CN's II-XII intact bilaterally? Course Course Course Narrative: 21:45pm - 72-year-old female who is Yoruba-speaking with a past medical history of hypertension, hyperlipidemia, diabetes, CKD, HFpEF, chronic back pain/sciatica presenting to the ED with complaints of nausea/vomiting with generalized abdominal pain and diarrhea that started this morning at 1am with intermittent headaches. Labs were obtained while the patient was in the waiting room and carbon dioxide 21. BUN 26. Random glucose 153. Total protein 8.2. Otherwise all other labs are within normal limits. Plan: CT scan abdomen pelvis with IV contrast. Provide 4 mg of Zofran and 60 mg of IM Toradol then attempt a p.o. trial and re-evaluate. Reevaluation(s) Reevaluation #1: - labs reviewed and patient mild baseline anemia similar compared to prior. Carbon dioxide 21. BUN 26 she has been worse in the past. Random glucose 153. Magnesium 1.2. Total protein 8.2. Otherwise all other labs are within normal limits. UA revealed protein and 3+ blood otherwise no evidence of UTI. Patient negative for COVID/flu. - I discussed this case with Dr. Delacruz and he reported that I can give her p.o. magnesium now that she is tolerating p.o. fluids/solids she was able to drink laney jignesh and eat saltine crackers. She reports the Toradol and the Zofran provided moderate symptomatic relief. Therefore at this time patient most likely viral syndrome will DC home with symptomatic treatment instructions to follow-up with PCP within the next few days to repeat magnesium level and to return if any new or worsening symptoms. Patient with at bedside understand agree this plan. Time: 00:58 MDM - Nausea/Vomiting/Diarrhea Medical Records Attestation: I reviewed the patient's medical records. Lab Data Attestation: I reviewed the patient's lab results. Result diagrams: 03/03/22 14:17 03/03/22 14:17 Labs: Lab Results 03/03/22 03/03/22 03/03/22 Range/Units 13:42 13:42 14:17 WBC 5.9 (4.8-10.8) X10*3/uL RBC 4.01 L (4.20-5.50) X10*6/uL Hgb 12.3 (12.0-16.0) g/dl Hct 36.8 L (37.0-47.0) % MCV 91.8 (80.0-98.0) fL MCH 30.7 (27.0-33.0) pg MCHC 33.4 (31.0-35.0) g/dl RDW 13.1 (11.0-16.0) % Plt Count 215 (160-400) X10*3/uL MPV 9.7 (9.4-12.3) fL Immature Gran % (Auto) 0.2 (0.0-0.4) % Neut % (Auto) 89.8 H (45-73) % Lymph % (Auto) 4.2 L (20-40) % [place] % (Auto) 4.0 (2-11) % Eos % (Auto) 1.5 (0-4) % Baso % (Auto) 0.3 (0-2) % Lymph # (Auto) 0.3 L (1.2-4.9) X10*3/uL [place] # (Auto) 0.2 (0.1-1.2) X10*3/uL Eos # (Auto) 0.1 (0.0-0.4) X10*3/uL Baso # (Auto) 0.0 (0.0-0.2) X10*3/uL Abs Immat Gran (auto) 0.01 (0.00-0.03) X10*3/uL Absolute Neuts (auto) 5.3 (2.0-8.3) x10*3/uL Absolute Nucleated RBC 0.000 (0.0-0.012) X10*3/uL Nucleated RBC % (auto) 0.0 (0.0-0.2) /100WBC Sodium (135-145) mmol/L Potassium (3.3-5.1) mmol/L Chloride (96-108) mmol/L Carbon Dioxide (22-29) mmol/L Anion Gap (12-20) BUN (9-16) mg/dL Creatinine (0.5-1.4) mg/dL Estim Creat Clear Calc Estimated GFR Random Glucose (60-115) mg/dL Calcium (8.4-10.2) mg/dL Magnesium (1.6-2.6) mg/dL Total Bilirubin (0.0-1.0) mg/dL Direct Bilirubin (0.0-0.5) mg/dL AST (5-31) U/L ALT (0-31) U/L Alkaline Phosphatase (39-117) U/L Total Protein (6.5-8.0) g/dL Albumin (3.5-5.0) g/dL Lipase (8-78) U/L Urine Color Urine Appearance Urine pH (5.0-8.0) Ur Specific [place] (1.005-1.025) Urine Protein (NEG-TRACE) MG/DL Urine Glucose (UA) (NEG) MG/DL Urine Ketones (NEG) MG/DL Urine Blood (NEG) Urine Nitrite (NEG) Ur Leukocyte Esterase (NEG) Urine RBC (0) /HPF Urine WBC (0-4) /HPF Ur Squamous Epith Cells /LPF Urine Bacteria /LPF COVID-19 (REJI) Negative (Negative) COVID-19 Clin Com See Note Influenza Type A (NIKA) Negative (Negative) Influenza Type B (NIKA) Negative (Negative) Influenza A & B Note See Note 03/03/22 03/04/22 Range/Units 14:17 00:21 WBC (4.8-10.8) X10*3/uL RBC (4.20-5.50) X10*6/uL Hgb (12.0-16.0) g/dl Hct (37.0-47.0) % MCV (80.0-98.0) fL MCH (27.0-33.0) pg MCHC (31.0-35.0) g/dl RDW (11.0-16.0) % Plt Count (160-400) X10*3/uL MPV (9.4-12.3) fL Immature Gran % (Auto) (0.0-0.4) % Neut % (Auto) (45-73) % Lymph % (Auto) (20-40) % [place] % (Auto) (2-11) % Eos % (Auto) (0-4) % Baso % (Auto) (0-2) % Lymph # (Auto) (1.2-4.9) X10*3/uL [place] # (Auto) (0.1-1.2) X10*3/uL Eos # (Auto) (0.0-0.4) X10*3/uL Baso # (Auto) (0.0-0.2) X10*3/uL Abs Immat Gran (auto) (0.00-0.03) X10*3/uL Absolute Neuts (auto) (2.0-8.3) x10*3/uL Absolute Nucleated RBC (0.0-0.012) X10*3/uL Nucleated RBC % (auto) (0.0-0.2) /100WBC Sodium 141 (135-145) mmol/L Potassium 4.2 (3.3-5.1) mmol/L Chloride 108 (96-108) mmol/L Carbon Dioxide 21 L (22-29) mmol/L Anion Gap 16 (12-20) BUN 26 H (9-16) mg/dL Creatinine 1.40 (0.5-1.4) mg/dL Estim Creat Clear Calc 30.1 Estimated GFR 37 Random Glucose 153 H (60-115) mg/dL Calcium 10.1 (8.4-10.2) mg/dL Magnesium 1.2 L* (1.6-2.6) mg/dL Total Bilirubin 0.6 (0.0-1.0) mg/dL Direct Bilirubin 0.2 (0.0-0.5) mg/dL AST 13 (5-31) U/L ALT 11 (0-31) U/L Alkaline Phosphatase 41 (39-117) U/L Total Protein 8.2 H (6.5-8.0) g/dL Albumin 4.4 (3.5-5.0) g/dL Lipase 44 (8-78) U/L Urine Color YELLOW Urine Appearance CLEAR Urine pH 5.5 (5.0-8.0) Ur Specific [place] 1.025 (1.005-1.025) Urine Protein 1+ H (NEG-TRACE) MG/DL Urine Glucose (UA) NEG (NEG) MG/DL Urine Ketones NEG (NEG) MG/DL Urine Blood 3+ H (NEG) Urine Nitrite NEG (NEG) Ur Leukocyte Esterase NEG (NEG) Urine RBC 0-2 (0) /HPF Urine WBC 0-2 (0-4) /HPF Ur Squamous Epith Cells TRACE /LPF Urine Bacteria TRACE /LPF COVID-19 (REJI) (Negative) COVID-19 Clin Com Influenza Type A (NIKA) (Negative) Influenza Type B (NIKA) (Negative) Influenza A & B Note Imaging Data CT scan abdomen pelvis without IV contrast: Attestation: I personally reviewed and interpreted this imaging study as follows: Radiologist's impression: FINDINGS: LUNG BASES: The visualized lung bases are unremarkable.? LIVER, GALLBLADDER, AND BILIARY TREE: The liver is enlarged at 18.6 cm in greatest length and demonstrates decreased attenuation consistent with hepatic steatosis. A focal fatty sparing adjacent to the gallbladder fossa. No focal hepatic lesion or biliary ductal dilatation is present. The gallbladder is unremarkable with no evidence of radiopaque gallstones, gallbladder wall thickening, or obvious pericholecystic inflammatory changes.? PANCREAS: Unremarkable.? SPLEEN: 2 calcified splenic artery aneurysms are again seen and unchanged at 1.6 to 1.7 cmr.? ADRENAL GLANDS: Small left water density adrenal nodule unchanged consistent with benign adenoma. The right adrenal gland is normal.? KIDNEYS AND URETERS: The kidneys are normal in size, shape, and attenuation. No hydronephrosis, hydroureter, or calculi seen. No perinephric stranding. ? BLADDER: Unremarkable.? GASTROINTESTINAL TRACT: The small and large bowel are unremarkable. The appendix is unremarkable. Small 1 cm rim calcified omental nodular density may represent an avulsed epiploic appendage. This is not a worrisome or concerning finding. ABDOMINAL WALL: No significant hernia is appreciated.? LYMPH NODES: No retroperitoneal lymphadenopathy. VASCULAR: Calcific atherosclerotic changes present in aorta without aneurysm. PELVIC VISCERA: An anteverted uterus is present. An abnormal adnexal mass is not seen. No free fluid is present.? OSSEOUS STRUCTURES: Minimal degenerative changes present spine.? CT/CT abdomen pelvis wo con IMPRESSION: 1.? A cause for the patient's nausea, vomiting, diarrhea and generalized abdominal pain has not been found. 2.? Incidental note made of mildly enlarged fatty liver, stable calcified splenic artery aneurysm, stable small left adrenal nodule (benign) and other findings described above.? ? Fleischner guidelines were followed. Discharge Plan Discharge Clinical Impression: Acute viral syndrome, Nausea & vomiting, Diarrhea, Abdominal pain, Low blood magnesium level Patient Disposition: Home, Self-Care Instructions: Acute Nausea and Vomiting (ED), Acute Diarrhea (ED), Viral Syndrome (ED), Abdominal Pain (ED), Hypomagnesemia (ED) Additional Instructions: Your magnesium level today was 1.2. Normal level is 1.6-2.6 and we gave you oral magnesium. You need to have your magnesium recheck within the next 2-3 days please follow-up with her primary care provider for this. Return if any new or worsening symptoms. Arana nivel de magnesio hoy fue de 1.2. El nivel normal es 1.6-2.6 y le dimos mag nesio oral. Debe volver a verificar arana magnesio dentro de los pr?ximos 2-3 d?as, tonia un seguimiento con arana proveedor de atenci?n primaria para esto. Regrese si hay s?ntomas nuevos o que empeoran. Prescriptions: New ondansetron 4 mg tablet,disintegrating 4 mg PO Q6H Qty: 14 0RF dicyclomine 20 mg tablet 20 mg PO BID Qty: 14 0RF No Action carvedilol 25 mg tablet 25 mg PO BID Qty: 14 0RF Rx Instructions: must administer with a meal/food tizanidine 2 mg tablet 2 mg PO BEDTIME PRN (Reason: muscle spasticity) Qty: 7 0RF oxycodone 5 mg tablet 2.5 mg PO Q8H PRN (Reason: severe pain (scale score 7-10)) Qty: 5 0RF prednisone 20 mg tablet 40 mg PO DAILY Qty: 10 0RF alprazolam 0.25 mg tablet 0.25 mg PO DAILY PRN0RF hydroxyzine HCl 25 mg tablet 25 mg PO TID 0RF lisinopril 30 mg tablet 30 mg PO DAILY 0RF chlorthalidone 25 mg tablet 25 mg PO 0RF pravastatin 40 mg tablet 40 mg PO DAILY 0RF ezetimibe 10 mg tablet 10 mg PO DAILY 0RF cholecalciferol (vitamin D3) 50 mcg (2,000 unit) tablet 0 mcg PO 0RF glipizide 2.5 mg tablet extended release 24hr 2.5 mg PO QPM 0RF Referrals: Physician,Unknown J [Primary Care Provider] - 2 days (your pcp) Print Language: Yoruba
[2022-03-04 00:18] VITALS: BP 101/66; PULSE 84; RESP 14; O2SAT 97
[2022-03-04 00:32] LABS: Magnesium 1.2 mg/dL (1.6-2.6)
[2022-03-04 00:34] LABS: Appearance Urine CLEAR; Color Urine YELLOW; Glucose Urine UA NEG (NEG); Leukocyte Esterase Urine NEG (NEG); Nitrite Urine NEG (NEG); PH 5.5 (5.0-8.0); Specific Gravity - Urine 1.025 (1.005-1.025); UACC Culture Trigger NO; Urine Blood 3+ (NEG); Urine Ketones NEG (NEG); Urine Protein 1+ MG/DL (NEG-TRACE)
[2022-03-04 00:57] LABS: Bacteria Urine TRACE /LPF; RBC Urine 0-2 /HPF (0); Squamous Epithelial Cell Urine TRACE /LPF; WBC Urine 0-2 /HPF (0-4)
[2022-03-04] MEDS: Magnesium Oxide 400 MG TABLET 800 MG PO ×2 (01:26)
== END 2022-03-04 01:46 | disposition home or self-care (01) ==
PROVIDERS: Physician Assistant Medical; Emergency Provider Internal Medicine
DX: B34.9 Viral infection, unspecified (principal); R51.9 Headache, unspecified; E83.40 Disorders of magnesium metabolism, unspecified; M54.50 Low back pain, unspecified; I10 Essential (primary) hypertension; R10.9 Unspecified abdominal pain; Z20.822 Contact with and (suspected) exposure to COVID-19; Z79.899 Other long term (current) drug therapy
CPT/HCPCS: 74176; 80048; 80076; 81001; 83690; 83735; 85025; 87502; 87635; 96372; 99283; 99284; J1885

== ENCOUNTER → 2022-03-11 09:47 | Outpatient (BNVA) | payer MEDICARE, MEDICAID, SELFPAY | PROVIDERS: PCP Family Medicine; Visit Provider Surgery Vascular Surgery | DX: I72.8 Aneurysm of other specified arteries (principal) | CPT/HCPCS: 99202 ==

== ENCOUNTER 2022-06-16 13:46 | Outpatient (REF) | payer MEDICARE, MEDICAID, SELFPAY ==
--- NOTE | ~2022-06-16 | XR_ITS ---
EXAMINATION: XR SHOULDER, LEFT CLINICAL INFORMATION: Pain COMPARISON: Previous x-ray from 2017 TECHNIQUE: AP external rotation, Grashey, scapular Y, and axillary views of the left shoulder. FINDINGS: Bone alignment is normal. No fracture or dislocation. Normal glenohumeral joint. Arthritis at the acromioclavicular joint. Normal soft tissues. XR/XR shoulder LT min 2V IMPRESSION: Arthritis at the acromioclavicular joint.
== END 2022-06-16 13:47 | disposition home or self-care (01) ==
LOC: HO.XRAY 13:46
PROVIDERS: PCP Family Medicine; Visit Provider Family Medicine
DX: M25.512 Pain in left shoulder (principal)
CPT/HCPCS: 73030

== ENCOUNTER 2022-12-23 09:29 | Emergency (ER) | payer MEDICARE, MEDICAID, SELFPAY ==
--- NOTE | ~2022-12-23 | XR_ITS ---
EXAMINATION: XR SHOULDER, LEFT XR HUMERUS, LEFT CLINICAL INFORMATION: Pain. COMPARISON: None TECHNIQUE: 3 views of the left shoulder. 2 views of the left humerus. FINDINGS: Left shoulder: No fracture or dislocation. The glenohumeral joint is well aligned. Joint spaces maintained. The acromioclavicular joint is intact with mild hypertrophic degenerative change. The visualized ribs are intact. The visualized lung is clear. Left humerus: No fracture or cortical disruption. Appropriate alignment of the elbow. The soft tissues are unremarkable. XR/XR humerus LT IMPRESSION: No acute abnormality of the left shoulder or humerus. Mild degenerative change at the acromioclavicular joint.
--- NOTE | ~2022-12-23 | XR_ITS ---
EXAMINATION: XR SHOULDER, LEFT XR HUMERUS, LEFT CLINICAL INFORMATION: Pain. COMPARISON: None TECHNIQUE: 3 views of the left shoulder. 2 views of the left humerus. FINDINGS: Left shoulder: No fracture or dislocation. The glenohumeral joint is well aligned. Joint spaces maintained. The acromioclavicular joint is intact with mild hypertrophic degenerative change. The visualized ribs are intact. The visualized lung is clear. Left humerus: No fracture or cortical disruption. Appropriate alignment of the elbow. The soft tissues are unremarkable. XR/XR shoulder LT min 2V IMPRESSION: No acute abnormality of the left shoulder or humerus. Mild degenerative change at the acromioclavicular joint.
[2022-12-23 09:48] VITALS: BP 127/80; PULSE 70; RESP 16; O2SAT 99; BMI 26.2
--- NOTE | 2022-12-23 11:58 | ED_ITS ---
HPI - Extremity Problem General Chief complaint: Extremity Problem Stated complaint: L shoulder/arm pain Time Seen by Provider: 12/23/22 11:55 Source: patient Mode of arrival: ambulatory History of Present Illness HPI Narrative: 72-year-old female with a past medical history of arthritis, CKD, diabetes, HLD, HTN, presenting to the ED complaining of acute on chronic left shoulder pain x months after moving furniture at home. Denies recent injury/trauma or fall. Denies numbness, tingling, weakness, CP/SOB MD Complaint: extremity pain Related Data Home Medications Medication Instructions Recorded Confirmed alprazolam 0.25 mg tablet 0.25 mg PO DAILY PRN 09/24/20 01/17/22 chlorthalidone 25 mg tablet 25 mg PO 09/24/20 01/17/22 hydroxyzine HCl 25 mg tablet 25 mg PO TID 09/24/20 01/17/22 lisinopril 30 mg tablet 30 mg PO DAILY 09/24/20 01/17/22 cholecalciferol (vitamin D3) 50 0 mcg PO 09/26/21 01/17/22 mcg (2,000 unit) tablet ezetimibe 10 mg tablet 10 mg PO DAILY 09/26/21 01/17/22 glipizide 2.5 mg tablet, extended 2.5 mg PO QPM 09/26/21 01/17/22 release 24 hr pravastatin 40 mg tablet 40 mg PO DAILY 09/26/21 01/17/22 alprazolam 0.5 mg tablet mg PO 03/11/22 Previous Rx's Medication Instructions Recorded carvedilol 25 mg tablet 25 mg PO BID #14 tabs 08/12/20 tizanidine 2 mg tablet 2 mg PO BEDTIME PRN muscle 02/04/22 spasticity #7 tabs oxycodone 5 mg tablet 2.5 mg PO Q8H PRN severe pain 02/05/22 (scale score 7-10) #5 tabs prednisone 20 mg tablet 40 mg PO DAILY #10 tabs 02/05/22 dicyclomine 20 mg tablet 20 mg PO BID Abdominal cramping 03/03/22 #14 tabs ondansetron 4 mg disintegrating 4 mg PO Q6H #14 tabs 03/03/22 tablet acetaminophen 500 mg tablet 500 mg PO Q6H PRN fever or pain 12/23/22 (Tylenol Extra Strength) #14 tabs cyclobenzaprine 5 mg tablet 5 mg PO Q8H PRN pain (scale score 12/23/22 7-10) 5 days #14 tabs lidocaine 5 % topical patch 1 patch topical DAILY PRN pain #30 12/23/22 (Lidoderm) ea naproxen 500 mg tablet 500 mg PO BID PRN pain 10 days #20 12/23/22 tabs Allergies Allergy/AdvReac Type Severity Reaction Status Date / Time No Known Allergies Allergy Verified 03/11/22 10:01 Review of Systems Review of Systems: Constitutional: No Fever, No Chills ENT/Mouth: No Ear Pain, No Nasal Congestion, No sore throat, No Rhinorrhea, No Swallowing Difficulty Cardiovascular: No Chest Pain, No SOB Respiratory: No Cough, No Sputum, No Wheezing Gastrointestinal: No Nausea, No Vomiting, No Diarrhea, No Constipation, No Abdominal pain Genitourinary: No Dysuria, No Urinary Frequency, No Hematuria, No Urinary Incontinence/retention Musculoskeletal: + joint pain, No Myalgias, No Joint Swelling Skin: No Skin Lesions, No rash Neuro: No Weakness, No Numbness, No Paresthesias Yes all other systems are reviewed and are negative Constitutional: Constitutional: Reports as per [facility] Past Medical History Attestation statement: The following information was validated with the patient. Medical History Arthritis Chronic kidney disease, unspecified Diabetes Diastolic dysfunction Essential hypertension Hyperlipemia Hypertension Surgical History History of colonoscopy (~04/2015) Family History Family History Father No problems noted. Mother No problems noted. Social History Social History Patient Tobacco Use Status: Never used Tobacco Advance Directives: Yes Advance Directives Information Provided: No Advance Directives on File: No Physical Exam Vital Signs: Vital Signs: Last Vital Signs Pulse 70 12/23/22 09:48 Resp 16 12/23/22 09:48 BP 127/80 12/23/22 09:48 Pulse Ox 99 12/23/22 09:48 O2 Del Method 12/23/22 09:48 BMI result Body Mass Index 26.2 Const: General: cooperative, healthy appearing and no acute distress Marko entation/consciousness: patient oriented x3 Limitations: no limitations HEENT: Head: Yes normal to inspection and Yes atraumatic Ears: hearing grossly normal bilaterally General nose exam: Normal external nose present Face and sinus: Yes normal facial exam Eyes: General: appearance normal, both eyes and all related structures EOM: EOMs intact bilaterally Neck: Neck: Yes normal visual inspection and Yes no meningeal signs Resp: Effort & Inspection: normal respiratory effort and no respiratory distress Cardio: Rate: regular rate Heart sounds: S1 normal heart sound present and S2 normal heart sound present Back/Spine/Pelvis: Other: No midline thoracic/lumbar spinous tenderness/step-off or deformity Skin: Rashes: no rashes Wounds: no wounds Neuro: General: patient oriented x3, tone normal and no meningeal signs Gait exam (Neuro): Normal gait present Extrem: Other: Left shoulder without noted deformity. Diffusely tender to palpation. + left trapezius muscle tenderness to palpation with palpable muscle spasming. No erythema/ecchymosis or crepitus. Decreased range of motion secondary to pain. NV intact distally General: Yes normal to inspection Course Course Course Narrative: XR shoulder LT min 2V/XR humerus LT IMPRESSION: No acute abnormality of the left shoulder or humerus. Mild degenerative change at the acromioclavicular joint. Results discussed with patient including worrisome signs and symptoms and strict return precautions, and when to return to the emergency department. They verbalized understanding and feel safe for discharge at this time. Medications Administered Discontinued Medications Generic Name Dose Route Start Last Admin Trade Name Greggq PRN Reason Stop Dose Admin Cyclobenzaprine HCl 10 mg 12/23/22 12:16 12/23/22 12:26 Cyclobenzaprine Hcl 10 Mg Tablet PO 12/23/22 12:17 10 mg ONCE ONE Administration Lidocaine 1 patch 12/23/22 12:16 12/23/22 12:24 Lidocaine 4 % Patch Adh..Patch TRANSDERMA 12/23/22 12:17 1 patch ONCE ONE Administration Protocol Medical Decision Making Medical Decision Making MDM Narrative: 72-year-old female with a past medical history of arthritis, CKD, diabetes, HLD, HTN, presenting to the ED complaining of acute on chronic left shoulder pain x months after moving furniture at home. On exam vital signs stable, NAD, nontoxic appearing a concern for MSK pain/strain/spasming vs rotator cuff injury or tendinitis. Lower suspicion for fracture/dislocation. Low suspicion for ACS. Plan: X-rays Please refer to course for remaining clinical decision making, interpretation of labs/imaging results, and discussions with consultants and/or family members. Differential Diagnosis Differential Diagnoses: The differential diagnosis associated with the presentation includes as above Independent Interpretation I performed an independent interpretation of an: EKG Interpretation: EKG sinus Dave with first-degree AV block. Nonspecific ST T-wave abnormality. Rate is 58. Inverted T-waves have replaced nonspecific T-wave abnormality when compared to prior EKG. No STEMI. QTC 426 Radiology Impression Discussion of test interpretation with radiology: I have reviewed the radiologist's reading. External Record Review External record reviewed: Office record, Outpatient record and Prior outpatient radiology Prescription Management I considered prescription management with: Pain Medication Discharge Plan Discharge Clinical Impression: Left shoulder pain Patient Disposition: Home, Self-Care Instructions: Arthralgia (ED) Additional Instructions: Your pain is likely musculoskeletal. your x-ray shows degenerative changes, no fracture Flexeril is a muscle relaxer, take at night as it makes you drowsy, do not drive, drink alcohol, or operate machinery while taking it Naproxen as an anti-inflammatory / pain medication, take with food Lidoderm patches are numbing patches, apply to painful area In addition take Tylenol at home If symptoms persist or worsen, pain becomes unbearable, you developed urinary retention or incontinence, or weakness return to the ED Es probable que campbell dolor sea musculoesquel?benja. campbell radiograf?a muestra cambios degenerativos, sin fractura Flexeril es un relajante muscular, t?diandra por la noche ya que te adormece, no conduzcas, bebas alcohol ni operes maquinaria mientras lo johan. Naproxeno cata medicamento antiinflamatorio/analg?sico, t?villalpando con alimentos Los parches de Lidoderm son parches anest?sicos, se aplican en el ?mitali dolorida Adem?s yanni Tylenol en casa Si los s?ntomas persisten o empeoran, el dolor se vuelve insoportable, desarroll? retenci?n urinaria o incontinencia, o debilidad, regrese al servicio de urgencias. Prescriptions: New lidocaine [Lidoderm] 5 % adhesive patch,medicated 1 patch topical DAILY MDD remove after 12 hours PRN (Reason: pain) Qty: 30 0RF Rx Instructions: leave on most painful area for up to 12 hrs cyclobenzaprine 5 mg tablet 5 mg PO Q8H PRN (Reason: pain (scale score 7-10)) 5 Days Qty: 14 0RF acetaminophen [Tylenol Extra Strength] 500 mg tablet 500 mg PO Q6H PRN (Reason: fever or pain) Qty: 14 0RF naproxen 500 mg tablet 500 mg PO BID PRN (Reason: pain) 10 Days Qty: 20 0RF No Action carvedilol 25 mg tablet 25 mg PO BID Qty: 14 0RF Rx Instructions: must administer with a meal/food ondansetron 4 mg tablet,disintegrating 4 mg PO Q6H Qty: 14 0RF dicyclomine 20 mg tablet 20 mg PO BID Qty: 14 0RF tizanidine 2 mg tablet 2 mg PO BEDTIME PRN (Reason: muscle spasticity) Qty: 7 0RF oxycodone 5 mg tablet 2.5 mg PO Q8H PRN (Reason: severe pain (scale score 7-10)) Qty: 5 0RF prednisone 20 mg tablet 40 mg PO DAILY Qty: 10 0RF alprazolam 0.25 mg tablet 0.25 mg PO DAILY PRN hydroxyzine HCl 25 mg tablet 25 mg PO TID lisinopril 30 mg tablet 30 mg PO DAILY chlorthalidone 25 mg tablet 25 mg PO pravastatin 40 mg tablet 40 mg PO DAILY ezetimibe 10 mg tablet 10 mg PO DAILY cholecalciferol (vitamin D3) 50 mcg (2,000 unit) tablet 0 mcg PO glipizide 2.5 mg tablet extended release 24hr 2.5 mg PO QPM alprazolam 0.5 mg tablet PO Referrals: Fani Goodrich MD [Primary Care Provider] - 1 week Print Language: Chadian
--- NOTE | 2022-12-23 11:59 | ECG_ITS ---
Test Reason : pain shoulder Blood Pressure : / mmHG Vent. Rate : 058 BPM Atrial Rate : 058 BPM P-R Int : 214 ms QRS Dur : 080 ms QT Int : 434 ms P-R-T Axes : 038 -13 077 degrees QTc Int : 426 ms Sinus bradycardia with 1st degree A-V block Nonspecific ST and T wave abnormality Abnormal ECG When compared with ECG of 12-AUG-2020 14:30, Inverted T waves have replaced nonspecific T wave abnormality in Anterior leads Referred By: Fanny Vines Electronically Signed By:AMADOU AQUINO
[2022-12-23] MEDS: Lidocaine 4 % Patch ADH..PATCH 1 PATCH TRANSDERMA (12:24)
[2022-12-23] MEDS: Cyclobenzaprine HCl 10 MG TABLET PO (12:26)
[2022-12-23 13:09] VITALS: BP 134/82; PULSE 60; RESP 18; TEMP 36.4; O2SAT 99
== END 2022-12-23 13:10 | disposition home or self-care (01) ==
PROVIDERS: Emergency Provider Emergency Medicine; PCP Family Medicine
DX: M25.512 Pain in left shoulder (principal); R94.31 Abnormal electrocardiogram [ECG] [EKG]; Z79.899 Other long term (current) drug therapy
CPT/HCPCS: 73030; 73060; 93005; 99283; 99284

== ENCOUNTER → 2023-02-03 09:25 | Outpatient (BNVA) | payer MEDICARE, MEDICAID, SELFPAY | PROVIDERS: PCP Family Medicine; Visit Provider Physician Assistant | DX: M19.012 Primary osteoarthritis, left shoulder (principal) | CPT/HCPCS: 20610; 99202; J1020 ==

== ENCOUNTER 2023-09-03 11:40 | Outpatient (REF) | payer MEDICARE, MEDICAID, SELFPAY ==
[2023-09-03 13:49] LABS: Alanine Aminotransferase 7 U/L (0-31); Albumin Level 4.6 g/dL (3.5-5.0); Alkaline Phosphatase 46 U/L (39-117); Anion Gap 14 (12-20); Aspartate Amino Transferase 15 U/L (5-31); Bilirubin Total 0.4 mg/dL (0.0-1.0); Blood Urea Nitrogen 28 mg/dL (9-16); Calcium 10.9 mg/dL (8.4-10.2); Carbon Dioxide 25 mmol/L (22-29); Chloride 105 mmol/L (96-108); Cholesterol 235 mg/dL (<200); Estimated Glomerular Filt Rate 37; Glucose Random 108 mg/dL (60-115); HDL Cholesterol 38 mg/dL (>40); Sodium 140 mmol/L (135-145); Total Protein 8.6 g/dL (6.5-8.0); Triglycerides 492 mg/dL (<150)
[2023-09-03 13:54] LABS: Creatinine Urine 175.27 mg/dL; Microalbum/Creatinine Ratio Ur 6.2 ug/mg cr (<30)
[2023-09-03 14:41] LABS: Reflex LDLD? Yes
[2023-09-04 18:38] LABS: LDL Cholesterol Direct 122 mg/dL (<100)
== END 2023-09-03 11:41 | disposition home or self-care (01) ==
LOC: HO.HHCL 11:40
PROVIDERS: Visit Provider Family Medicine
DX: E11.22 Type 2 diabetes mellitus with diabetic chronic kidney disease (principal); N18.31 Chronic kidney disease, stage 3a; E78.1 Pure hyperglyceridemia
CPT/HCPCS: 36415; 80053; 80061; 82043; 82570; 83721

== ENCOUNTER 2023-12-16 12:36 | Outpatient (AMB) | payer MEDICARE, MEDICAID, SELFPAY ==
--- NOTE | 2023-12-16 13:01 | A.OFFVIS_ITS ---
Intake Vital Signs 12/16/23 13:06 Height 5 ft Weight 130 lb 1.164 oz BMI 25.4 BP 160/81 H Blood Pressure Location Lt brachial Position Sitting Pulse 65 Intake Visit Reasons: Tubular Adenoma Intake Note: Patient is seen in office for evaluation and treatment of tubular adenoma. Pt c/o: No concerns today just hx of tubular polyps Logistics Operations Director Required: Yes Logistics Operations Director Name: Alma Concepcion Allergies No Known Allergies Allergy (Verified 12/16/23 13:07) Medication List - Last Reconciled 12/16/23 by Virginia Tucker PA-C acetaminophen (Tylenol Extra Strength) 500 mg PO Q6H PRN alprazolam 0.25 mg PO DAILY PRN alprazolam mg PO carvedilol 25 mg PO BID chlorthalidone 25 mg PO cholecalciferol (vitamin D3) 0 mcg PO cyclobenzaprine 5 mg PO Q8H PRN 5 days dicyclomine 20 mg PO BID ezetimibe 10 mg PO DAILY glipizide ER 2.5 mg PO QPM hydroxyzine HCl 25 mg PO TID lisinopril 30 mg PO DAILY pravastatin 40 mg PO DAILY HPI HPI Comments History of Present Illness Details A 73 y/o female hx adenoma 2014- Dr. Galvez- over due for colonoscopy- per pt Appetite is good Bowels are normal No cardiac or respiratory issues She will be going to [place] this week due to illness of her mother0 she expresses her anxiety and is tearful-certainly understandable, support given She has no nausea, vomiting, hematemesis, hematochezia fever or chills PFSH Medical History Chronic kidney disease, unspecified Diastolic dysfunction Essential hypertension Arthritis Hyperlipemia Hypertension Diabetes Surgical History History of colonoscopy (~04/2015) Family History Father No problems noted. Mother No problems noted. Social History (Updated 12/16/23 @ 13:16 by Virginia Tucker PA-C) Household Members: Children Alcohol intake: never Patient Tobacco Use Status: Never used Tobacco Review of Systems Const All systems reviewed & are unremarkable except as noted in HPI and below Card Denies chest pain and Denies dyspnea Resp Denies dyspnea Physical Exam Vital Signs: Last Vital Signs Pulse 65 12/16/23 13:06 BP 160/81 H 12/16/23 13:06 BMI result Body Mass Index 25.4 Const General: cooperative, healthy appearing, comfortable and anxious Orientation/consciousness: patient oriented x3 Limitations: language barrier Eyes Sclerae: sclerae normal Resp Effort & Inspection: normal respiratory effort and able to speak in complete sentences Auscultation: clear to auscultation bilaterally, no rales, no rhonchi and no wheezes Cardio Rate: regular rate Rhythm: regular rhythm Heart sounds: S1 normal heart sound present and S2 normal heart sound present GI Palpation (GI): Soft to palpation and nontender Skin General skin exam: no rashes or lesions noted Neuro General: patient oriented x3 Extrem General: Yes full ROM Psych Appearance: grossly normal Mental Status: mental status grossly normal Speech and movement: Normal speech and movement present and Clear speech present Affect: normal affect Attitude: cooperative Thought process: Normal thought process present Thought content: Normal thought content present Insight: Good insight present (Psych) Judgement: Good judgement present (Psych) Assessment & Plan Assessment & Plan (1) History of colonoscopy: Onset Date: ~04/2015 Comment: Dr. Galvez Code(s): Z98.890 - Other specified postprocedural states Plan Colonoscopy MG-prep Going to [place]- sick family Orders: Orders Colonoscopy - GI Use Only 12/16/23 Z98.890 - Other specified postprocedural states Medications: New bisacodyl (Dulcolax (bisacodyl)) Day before procedure @ 12 noon Take 4 tablets by mouth followed by large glass of water 20 mg (4 x 5 mg) PO ONCE 1 day PRN 4 tabs 0RF colonoscopy prep Z12.11 - Encounter for screening for malignant neoplasm of colon polyethylene glycol 3350 (Miralax) Take as directed by mouth the day before your procedure. 238 grams PO ONCE 1 day 238 grams 0RF laxative effect Patient Instructions: Very pleasant 73-year-old alert, female all with personal history colon polyps overdue for polyp surveillance. She has no GI complaints Discussed procedure, rare risks need for escorted due to anesthesia MiraLax Gatorade prep, reviewed literature given She will be scheduled appropriately she is going to be traveling due to ill family She is encouraged to call any questions or concerns or change in health status Appreciate the opportunity assist in care this pleasant patient Logistics Operations Director device used Coding Level of Care Code New Pt Level 3 (39277) Diagnoses History of colonoscopy Z98.890 Time Spent (min) 30 Comment child [phone]
[2023-12-16 13:06] VITALS: BP 160/81; PULSE 65; BMI 25.4
== END 2023-12-16 13:53 | disposition home or self-care (01) ==
PROVIDERS: PCP Family Medicine; Visit Provider Physician Assistant
DX: Z98.890 Other specified postprocedural states (principal)
CPT/HCPCS: 99203; 99213

== ENCOUNTER → 2023-12-16 12:36 | Outpatient (BNVA) | payer MEDICARE, MEDICAID, SELFPAY | PROVIDERS: PCP Family Medicine; Visit Provider Physician Assistant | DX: Z98.890 Other specified postprocedural states (principal) | CPT/HCPCS: 99202 ==

== ENCOUNTER 2024-06-03 10:47 | Outpatient (REF) | payer MEDICARE, MEDICAID, SELFPAY ==
--- NOTE | ~2024-06-03 | MM_ITS ---
EXAMINATION: MM SCREENING DIGITAL BREAST TOMOSYNTHESIS, BILATERAL CLINICAL INFORMATION: Screening. Asymptomatic. COMPARISON: Mammography: This study is compared with prior exams dating back to 2018. TECHNIQUE: Digital breast tomosynthesis is performed in both the craniocaudal and mediolateral oblique views along with computer-aided detection (CAD). Synthesized 2D images are generated from the tomosynthesis. FINDINGS: There are scattered areas of fibroglandular density (ACR BI-RADS breast composition Category b). There are no significant masses, abnormal calcifications, or other abnormalities. MM/MM tomosynthesis screening BI IMPRESSION: No mammographic evidence of malignancy. ASSESSMENT: BI-RADS BI-RADS 1 - Negative RECOMMENDATION: Routine annual mammography screening. 1 year F/U This examination should not preclude the clinical evaluation of a suspicious palpable abnormality. This patient's information was entered into a reminder system with a target due date for their next mammogram. Electronically signed by: Pina Pearce MD 07/02/2024 03:32 PM EDT
== END 2024-06-03 10:48 | disposition home or self-care (01) ==
LOC: HO.MAMMO 10:47
PROVIDERS: PCP Family Medicine; Visit Provider Family Medicine
DX: Z12.31 Encounter for screening mammogram for malignant neoplasm of breast (principal)
CPT/HCPCS: 77063; 77067

== ENCOUNTER → 2024-06-03 11:00 | Outpatient (BNV) | payer MEDICARE, MEDICAID, SELFPAY | PROVIDERS: PCP Family Medicine; Visit Provider Radiology Diagnostic Radiology | DX: Z12.31 Encounter for screening mammogram for malignant neoplasm of breast (principal) | CPT/HCPCS: 77063; 77067 ==

== ENCOUNTER 2024-06-16 06:19 | Day surgery (SDC) | payer MEDICARE, MEDICAID, SELFPAY ==
[2024-06-14 14:31] VITALS: BMI 25.4
[2024-06-16 07:17] VITALS: BP 151/87; PULSE 75; RESP 16; TEMP 36.2; O2SAT 98; BMI 24.8
[2024-06-16] MEDS: Lactated Ringers 1,000 ML 100 ML IVCONT (07:29)
[2024-06-16 07:33] LABS: Glucose, Whole Blood 132 mg/dL (60-115)
--- NOTE | 2024-06-16 07:45 | MHC.SHP ---
Pre-Procedural Eval Section A - 24 Hr Update-Section A only Date of Service: 06/16/24 Section B - Complete if H&P > 30 days Chief Complaint: Benign neoplasm, unspecified site Relevant Family History (Specify if Yes): No Relevant Social History: None Present Medications: see Short Stay Collaborative assessment Medical History: Significant History (Splenic artery aneurysm Chronic kidney disease, unspecified Diastolic dysfunction Essential hypertension Arthritis Hyperlipemia Hypertension Diabetes) History of Previous Operations: Relevant previous surgery/procedure and date(s) (History of colonoscopy (~04/2015)) Allergies: Allergies Allergy/AdvReac Type Severity Reaction Status Date / Time No Known Allergies Allergy Verified 12/16/23 13:07 Review of Systems Sugical H&P ROS: Negative: Constitution, Cardiovascular, Respiratory, Neurological, Psychiatric, Hem-Onc, Allergic/Immunologic, Gastrointestinal, Genitourinary, Musculoskeletal, Integumentary, Endocrine and Eyes/Ears/Nose/Throat Exam Surgical H&P Exam: Normal: HEENT, Normal: Heart, Normal: Lungs, Normal: Extremities, Normal: Abdomen, Normal: Skin and Normal: Neurological Plan Diagnosis/Plan: Unchanged I have reviewed the history and physical and performed a pertinent physical examination on my patient. No changes have occurred unless specified. Time Spent With Patient Time: Total time managing care of this patient today ____ minutes.
--- NOTE | 2024-06-16 08:00 | HO.ANESPROP2 ---
Documented by User: Giovanna Burnette NP 06/15/24 08:57 HPI - Anesthesia Eval Consult details Narrative: 74yo F for Colonoscopy PMFSH Active Problems Active Problems: All Active Problems Arthritis of left acromioclavicular joint (Acute) Splenic artery aneurysm (Acute) Precordial chest pain (Acute) History of colonoscopy (Acute ~04/2015) Chronic kidney disease, unspecified (Acute) Diastolic dysfunction (Acute) Essential hypertension (Acute) Hyperlipemia (Acute) Diabetes (Acute) Past Medical History Medical History (Updated 06/14/24 @ 14:32 by Bernie Colvin RN) Splenic artery aneurysm Chronic kidney disease, unspecified Diastolic dysfunction Essential hypertension Arthritis Hyperlipemia Hypertension Diabetes Family History Family History Father No problems noted. Mother No problems noted. Surgical History Surgical History History of colonoscopy (~04/2015) Social History Social History (Updated 12/16/23 @ 13:16 by Virginia Tucker PA-C) Household Members: Children Are you a primary healthcare management consultant to a significant other at home: No Do you presently have visiting nurse or other home services: No Alcohol intake: never Patient Tobacco Use Status: Never used Tobacco Use of substances other than those prescribed or required for medical reasons: No Have you been hit, kicked, punched, or otherwise hurt by someone within the past year? If so, by whom?: No Are you DNR?: No Advance Directives: No Advance Directives Information Provided: Yes Recently lost weight without trying: No Meds Allergies Allergy/AdvReac Type Severity Reaction Status Date / Time No Known Allergies Allergy Verified 12/16/23 13:07 Home Medications ?Medication ?Instructions ?Recorded ?Confirmed ?Last Taken ?Type chlorthalidone 25 mg tablet 25 mg PO DAILY 09/24/20 06/14/24 Unknown History hydroxyzine HCl 25 mg tablet 25 mg PO TID 09/24/20 06/14/24 Unknown History lisinopril 30 mg tablet 30 mg PO DAILY 09/24/20 06/14/24 Unknown History cholecalciferol (vitamin D3) 50 50 mcg PO DAILY 09/26/21 06/14/24 Unknown History mcg (2,000 unit) tablet ezetimibe 10 mg tablet 10 mg PO DAILY 09/26/21 06/14/24 Unknown History glipizide 2.5 mg tablet, extended 2.5 mg PO QPM 09/26/21 06/14/24 Unknown History release 24 hr pravastatin 40 mg tablet 40 mg PO DAILY 09/26/21 06/14/24 Unknown History alprazolam 0.5 mg tablet 0.5 mg PO BID PRN Anxiety 03/11/22 06/14/24 Unknown History Exam Height,Weight and Vital Signs: Height 5 ft Weight 58.967 kg Narrative Narrative: CT abdomen pelvis wo IV con 2021 IMPRESSION: 1. A cause for the patient's nausea, vomiting, diarrhea and generalized abdominal pain has not been found. 2. Incidental note made of mildly enlarged fatty liver, stable calcified splenic artery aneurysm, stable small left adrenal nodule (benign) and other findings described above. Assessment and Plan Assessment Anesthesia Assessment: Chart Reviewed Documented by User: Deann Reeves DO 06/16/24 08:16 [facility] Past Medical History Medical History (Updated 06/14/24 @ 14:32 by Bernie Colvin RN) Splenic artery aneurysm Chronic kidney disease, unspecified Diastolic dysfunction Essential hypertension Arthritis Hyperlipemia Hypertension Diabetes Family History Family History Father No problems noted. Mother No problems noted. Family history of problems with anesthesia: No Surgical History Surgical History History of colonoscopy (~04/2015) History of Problems with Anesthesia: No Social History Social History (Updated 12/16/23 @ 13:16 by Virginia Tucker PA-C) Household Members: Children Are you a primary healthcare management consultant to a significant other at home: No Do you presently have visiting nurse or other home services: No Alcohol intake: never Patient Tobacco Use Status: Never used Tobacco Use of substances other than those prescribed or required for medical reasons: No Have you been hit, kicked, punched, or otherwise hurt by someone within the past year? If so, by whom?: No Are you DNR?: No Advance Directives: No Advance Directives Information Provided: Yes Recently lost weight without trying: No Meds Allergies Allergy/AdvReac Type Severity Reaction Status Date / Time No Known Allergies Allergy Verified 12/16/23 13:07 Home Medications ?Medication ?Instructions ?Recorded ?Confirmed ?Last Taken ?Type chlorthalidone 25 mg tablet 25 mg PO DAILY 09/24/20 06/14/24 Unknown History hydroxyzine HCl 25 mg tablet 25 mg PO TID 09/24/20 06/14/24 Unknown History lisinopril 30 mg tablet 30 mg PO DAILY 09/24/20 06/14/24 Unknown History cholecalciferol (vitamin D3) 50 50 mcg PO DAILY 09/26/21 06/14/24 Unknown History mcg (2,000 unit) tablet ezetimibe 10 mg tablet 10 mg PO DAILY 09/26/21 06/14/24 Unknown History glipizide 2.5 mg tablet, extended 2.5 mg PO QPM 09/26/21 06/14/24 Unknown History release 24 hr pravastatin 40 mg tablet 40 mg PO DAILY 09/26/21 06/14/24 Unknown History alprazolam 0.5 mg tablet 0.5 mg PO BID PRN Anxiety 03/11/22 06/14/24 Unknown History Exam Exam Date and Time: 06/16/24 0800 Height,Weight and Vital Signs: Height 5 ft Weight 58.967 kg Height 5 ft Weight 57.697 kg Vital Signs Temperature 97.1 F 06/16/24 07:17 Pulse Rate 75 06/16/24 07:17 Respiratory Rate 16 06/16/24 07:17 Blood Pressure 151/87 H 06/16/24 07:17 Pulse Oximetry 98 06/16/24 07:17 Oxygen Delivery Method Room Air 06/16/24 07:17 Temperature 97.1 F 06/16/24 07:17 Pulse Rate 75 06/16/24 07:17 Respiratory Rate 16 06/16/24 07:17 Blood Pressure 151/87 H 06/16/24 07:17 Pulse Oximetry 98 06/16/24 07:17 Oxygen Delivery Method Room Air 06/16/24 07:17 Airway Mallampati Class: I TM Dist: >3cm Neck ROM: Full Loose/Missing/Broken Teeth: Yes (chipped #8 and a few missing teeth) Heart: S1S2 Lungs: CTAB Assessment and Plan Assessment Anesthesia Assessment: Anesthesia Plan Discussed and Chart Reviewed Final Anesthetic Review Family History of Problems with Anesthesia: No History of Problems with Anesthesia: No NPO: Yes ASA Class: II Final Preanesthetic Review: No Changes in Pt Med Stat, Meds/Allgs Chart Reviewed, Consent Obtained/Reviewed and Anes Risks/Benef Reviewed Patient Risk: Low Procedure Risk: Low Anesthetic Plan Anesthetic Plan: MAC: and Agree w/ Assess. and Plan Disposition: Standard PACU
--- NOTE | 2024-06-16 08:56 | P.OPN-COLO_ITS ---
Colonoscopy Operative Note Operative Note Date of Service: 06/16/24 Narrative: Operative Information Procedure Description: Colonoscopy Indication: screening Anesthesia: MAC COLONOSCOPY Instrument: Olympus variable stiffness pediatric scope 190L Colonoscopy Monitoring: Vital signs and clinical assessment, continuous EKG monitoring, Pulse oximetry, Carbon Dioxide monitoring and blood pressure monitoring were done throughout the procedure. Colon withdrawal time was 9 minutes. Procedure: The patient was placed in the left lateral decubitis position and pre-procedure medications were administered. After a digital rectal examination of the ano-rectum, the video colonoscope was inserted into the rectum and advanced through the colon to the cecum/TI. The colonoscope was slowly withdrawn in a retrograde panoramic fashion and the colon mucosa was carefully examined including a retroflexed view of the rectum. Findings and interventions are described below. Procedure Difficulty: moderate Findings: Terminal Ileum-normal Cecum:normal Ascending Colon: 4-5 mm sessile polyp removed with cold forceps Transverse Colon -normal Descending Colon:normal Sigmoid Colon: normal Rectum: Retroflexion with small to medium internal hemorrhoids seen, grade I Anorectum - normal Intervention: cold forceps Colon preparation: [place] Bowel Preparation Scale Right colon; 2 Transverse colon: 2 Left colon; 2 (0 = Unprepared colon segment with mucosa not seen due to solid stool that cannot be cleared. 1 = Portion of mucosa of the colon segment seen, but other areas of the colon segment not well seen due to staining, residual stool and/or opaque liquid. 2 = Minor amount of residual staining, small fragments of stool and/or opaque liquid, but mucosa of colon segment seen well. 3 = Entire mucosa of colon segment seen well with no residual staining, small fragments of stool or opaque liquid) Impression and Post Procedure Diagnosis: colon polyp internal hemorrhoids Plan: High fiber diet leaflet Avoid straining at stool, epsom salts and sitz bath, anusol supps or cream Repeat Colonoscopy in 5 years due to polyp if health allows or earlier if clinically indicated Above findings were reviewed with the patient and relevant handouts were provided if indicated.
[2024-06-16 09:03] VITALS: BP 122/73; PULSE 75; RESP 16; TEMP 36.1; O2SAT 97
[2024-06-16 09:18] VITALS: BP 143/88; PULSE 71; RESP 18; TEMP 36.9; O2SAT 98
== END 2024-06-16 09:42 | disposition home or self-care (01) ==
PROVIDERS: PCP Family Medicine; Visit Provider Internal Medicine Gastroenterology
PROC: 0DJD8ZZ Inspection of Lower Intestinal Tract, Via Natural or Artificial Opening Endoscopic (ICD-10-PCS; CPT 45378; principal; 2024-06-16 08:20)
DX: Z12.11 Encounter for screening for malignant neoplasm of colon (principal); D12.2 Benign neoplasm of ascending colon; K64.0 First degree hemorrhoids; I12.9 Hypertensive chronic kidney disease with stage 1 through stage 4 chronic kidney disease, or unspecified chronic kidney disease; E11.22 Type 2 diabetes mellitus with diabetic chronic kidney disease; N18.9 Chronic kidney disease, unspecified; Z79.84 Long term (current) use of oral hypoglycemic drugs; Z79.899 Other long term (current) drug therapy
CPT/HCPCS: 45380; 82947; 88305; J2704

== ENCOUNTER → 2024-06-16 06:19 | Outpatient (BNV) | payer MEDICARE, MEDICAID, SELFPAY | PROVIDERS: PCP Family Medicine; Visit Provider Internal Medicine Gastroenterology | DX: Z12.11 Encounter for screening for malignant neoplasm of colon (principal); K63.5 Polyp of colon; K64.0 First degree hemorrhoids | CPT/HCPCS: 45380 ==

== ENCOUNTER 2024-07-05 13:56 | Outpatient (REF) | payer MEDICARE, MEDICAID, SELFPAY ==
[2024-07-05 16:24] LABS: MANUAL DIFF FLAG NO
[2024-07-05 16:36] LABS: Basophils Absolute Auto 0.1 X10*3/uL (0.0-0.2); Basophils Percent Auto 1.1 % (0-2); Eosinophils Absolute Auto 0.2 X10*3/uL (0.0-0.4); Eosinophils Percent Auto 2.4 % (0-4); Hematocrit 35.4 % (37.0-47.0); Hemoglobin 11.9 g/dl (12.0-16.0); Imm Gran Abs Auto 0.02 X10*3/uL (0.00-0.03); Imm Gran Pct Auto 0.3 % (0.0-0.4); Lymphocytes Percent Auto 32.2 % (20-40); Mean Corpuscular HGB Conc 33.6 g/dl (31.0-35.0); Mean Corpuscular Hemoglobin 30.7 pg (27.0-33.0); Mean Corpuscular Volume 91.2 fL (80.0-98.0); Mean Platelet Volume 10.4 fL (9.4-12.3); Monocytes Absolute Auto 0.4 X10*3/uL (0.1-1.2); Monocytes Percent Auto 6.9 % (2-11); Neutrophils Absolute Auto 3.6 x10*3/uL (2.0-8.3); Neutrophils Percent Auto 57.1 % (45-73); Platelet Count 231 X10*3/uL (160-400); Red Blood Count 3.88 X10*6/uL (4.20-5.50); Red Cell Distribution Width 12.5 % (11.0-16.0); White Blood Count 6.3 X10*3/uL (4.8-10.8)
[2024-07-05 16:54] LABS: Alanine Aminotransferase 14 U/L (0-31); Albumin Level 4.4 g/dL (3.5-5.0); Alkaline Phosphatase 47 U/L (39-117); Anion Gap 14 (12-20); Aspartate Amino Transferase 15 U/L (5-31); Bilirubin Total 0.3 mg/dL (0.0-1.0); Blood Urea Nitrogen 26 mg/dL (9-16); Calcium 10.7 mg/dL (8.4-10.2); Carbon Dioxide 23 mmol/L (22-29); Chloride 106 mmol/L (96-108); Cholesterol 250 mg/dL (<200); Estimated Glomerular Filt Rate 34; Glucose Random 85 mg/dL (60-115); HDL Cholesterol 36 mg/dL (>40); Potassium 4.2 mmol/L (3.3-5.1); Sodium 139 mmol/L (135-145); Total Protein 8.4 g/dL (6.5-8.0); Triglycerides 764 mg/dL (<150)
[2024-07-05 17:04] LABS: Creatinine Urine 74.91 mg/dL; Microalbum/Creatinine Ratio Ur 81.4 ug/mg cr (<30)
[2024-07-05 17:10] LABS: TSH reflex Free T4 2.51 uIU/mL (0.32-4.0); Vitamin D 25-OH Total 63.7 ng/mL (>30)
[2024-07-05 17:51] LABS: Reflex LDLD? Yes
[2024-07-08 02:13] LABS: LDL Cholesterol Direct 95 mg/dL (<100)
== END 2024-07-05 13:57 | disposition home or self-care (01) ==
LOC: HO.HHCL 13:56
PROVIDERS: Visit Provider Family Medicine
DX: E56.9 Vitamin deficiency, unspecified (principal); I12.9 Hypertensive chronic kidney disease with stage 1 through stage 4 chronic kidney disease, or unspecified chronic kidney disease; E11.22 Type 2 diabetes mellitus with diabetic chronic kidney disease; N18.31 Chronic kidney disease, stage 3a; E55.9 Vitamin D deficiency, unspecified; E78.1 Pure hyperglyceridemia; R12 Heartburn
CPT/HCPCS: 36415; 80053; 80061; 82043; 82306; 82570; 83721; 84443; 85025

== ENCOUNTER 2024-12-20 19:50 | Emergency (ER) | payer MEDICARE, MEDICAID, SELFPAY ==
--- NOTE | ~2024-12-20 | XR_ITS ---
CLINICAL HISTORY: cough 1 view chest x-ray Comparison: CR - CHEST 2 VIEWS [id number] - 09/07/17 11:11 EST Findings: No consolidation or effusion. Heart size is normal. No acute fracture. IMPRESSION: 1. No acute findings. This document has been electronically signed by: Sascha Fletcher MD on 12/20/2024 20:58:34
[2024-12-20 20:28] VITALS: BP 122/81; PULSE 100; RESP 20; TEMP 37.4; O2SAT 98; BMI 23.9
--- NOTE | 2024-12-20 20:41 | ED.GENADULT ---
HPI - General Adult General Chief complaint: Upper Respiratory Symptoms Stated complaint: body ache, fever, nausea Time Seen by Provider: 12/21/24 00:23 Source: patient and family (Daughter) Mode of arrival: ambulatory Limitations: no limitations History of Present Illness ED Provider: Reshma Singh NP HPI narrative: Patient is a 74-year-old female who presents emergency department with her daughter for evaluation. Reports 5 days with ill like symptoms including bodies, intermittent headache no associated neck pain or neck stiffness, generalized fatigue/weakness, chills but no reported fever, nonproductive cough, nausea without vomiting, decreased appetite. Related Data Home Medications ?Medication ?Instructions ?Recorded ?Confirmed chlorthalidone 25 mg tablet 25 mg PO DAILY 09/24/20 06/14/24 hydroxyzine HCl 25 mg tablet 25 mg PO TID 09/24/20 06/14/24 lisinopril 30 mg tablet 30 mg PO DAILY 09/24/20 06/14/24 cholecalciferol (vitamin D3) 50 50 mcg PO DAILY 09/26/21 06/14/24 mcg (2,000 unit) tablet ezetimibe 10 mg tablet 10 mg PO DAILY 09/26/21 06/14/24 glipizide 2.5 mg tablet, extended 2.5 mg PO QPM 09/26/21 06/14/24 release 24 hr pravastatin 40 mg tablet 40 mg PO DAILY 09/26/21 06/14/24 alprazolam 0.5 mg tablet 0.5 mg PO BID PRN Anxiety 03/11/22 06/14/24 Previous Rx's ?Medication ?Instructions ?Recorded carvedilol 25 mg tablet 25 mg PO BID #14 tabs 08/12/20 dicyclomine 20 mg tablet 20 mg PO BID Abdominal cramping 03/03/22 #14 tabs acetaminophen 500 mg tablet 500 mg PO Q6H PRN fever or pain 12/23/22 (Tylenol Extra Strength) #14 tabs cyclobenzaprine 5 mg tablet 5 mg PO Q8H PRN pain (scale score 12/23/22 7-10) 5 days #14 tabs bisacodyl 5 mg tablet,delayed 20 mg (4 x 5 mg) PO ONCE PRN 12/16/23 release (Dulcolax (bisacodyl)) colonoscopy prep 1 day #4 tabs polyethylene glycol 3350 17 238 g PO ONCE laxative effect 1 12/16/23 gram/dose oral powder (Miralax) day #238 grams bisacodyl 5 mg tablet,delayed 20 mg (4 x 5 mg) PO ONCE 1 day #4 05/30/24 release (Dulcolax (bisacodyl)) tabs polyethylene glycol 3350 17 238 g PO ONCE 1 day #238 grams 05/30/24 gram/dose oral powder (Miralax) ondansetron 4 mg disintegrating 4 mg PO Q8H PRN nausea and 12/21/24 tablet vomiting #6 tabs Allergies Allergy/AdvReac Type Severity Reaction Status Date / Time aspirin AdvReac Abdominal Verified 12/20/24 20:35 Pain Review of Systems Review of Systems: Yes all other systems are reviewed and are negative [facility] Past Medical History Attestation statement: The following information was validated with the patient. Source: old records reviewed Medical History (Updated 12/21/24 @ 01:10 by Reshma Singh CNP) Splenic artery aneurysm Chronic kidney disease, unspecified Diastolic dysfunction Essential hypertension Arthritis Hyperlipemia Hypertension Diabetes Surgical History History of colonoscopy (~04/2015) Family History Family History Father No problems noted. Mother No problems noted. Social History Social History (Updated 12/16/23 @ 13:16 by Virginia Tucker PA-C) Household Members: Children Are you a primary dialysis patient care technician to a significant other at home: No Do you presently have visiting nurse or other home services: No Alcohol intake: never Patient Tobacco Use Status: Never used Tobacco Advance Directives: No Advance Directives Information Provided: Yes Do you have a plan to hurt others: No Plan Physical Exam ED Vital Signs: Vital Signs - 24 hr 12/20/24 20:28 12/21/24 00:15 Temperature 99.4 F 100.1 F Pulse Rate 100 96 Respiratory Rate 20 20 Blood Pressure 122/81 132/87 Pulse Oximetry 98 97 Oxygen Delivery Method Room Air Room Air BMI result Body Mass Index 23.9 Course Course Course Narrative: This is an RME: Additional HPI, ROS, PE not included below will be deferred to primary provider. RME assessment and note performed by: Tess Medina PA-C This is a [id number]-female who presents to the ER with complaint of body ahces, headache, weakness, chills, dry cough, nausea, diarrhea symptoms started on 12/16/2024. denies any sick contacts Plan: Labs, viral swabs Medical Decision Making Medical Decision Making MDM Narrative: Patient is a 74-year-old female with past medical history of arthritis, CKD, diabetes, hypertension, hyperlipidemia, presenting for evaluation of viral type symptoms as per HPI. Overall she appears well, nontoxic, she is afebrile without tachycardia tachypnea or hypoxia, speaking clear full sentences. On review of labs obtained prior to my assumption of care; CBC is without leukocytosis, anemia, thrombocytopenia. No electrolyte derangement. Renal function consistent with baseline CKD. LFTs unremarkable. Benign abdominal examination. COVID-19 /RSV/influenza B testing negative Influenza a testing positive. CXR is without consolidation or infiltrate to suggest pneumonia. No associated chest pain or shortness of breath to suggest ACS/pulmonary embolism. ambulatory with steady gait. Discussed conservative treatment including rest, hydration, Tylenol/ibuprofen as needed for fever and body aches, saline nasal spray, humidifier, csiu-weu-nekswla cold medication. Advised to follow-up with primary care provider as needed, discussed reasons to return back to the emergency department. All questions were answered. Patient discharged home in stable condition. Differential Diagnosis Differential Diagnoses: The differential diagnosis associated with the presentation includes ( See narrative above) Admission/Observation Consideration of admission/observation: Escalation of care including admission/observation considered ( see narrative above) Lab Data [facility] Lab Attestation statement: I reviewed the patient's lab results. ( see narrative above) 12/20/24 21:21 12/20/24 21:21 Labs: Lab Results 12/20/24 Range/Units 21:21 WBC 5.7 (4.8-10.8) X10*3/uL RBC 3.95 L (4.20-5.50) X10*6/uL Hgb 12.1 (12.0-16.0) g/dl Hct 35.2 L (37.0-47.0) % MCV 89.1 (80.0-98.0) fL MCH 30.6 (27.0-33.0) pg MCHC 34.4 (31.0-35.0) g/dl RDW 12.6 (11.0-16.0) % Plt Count 205 (160-400) X10*3/uL MPV 10.2 (9.4-12.3) fL Immature Gran % (Auto) 0.3 (0.0-0.4) % Neut % (Auto) 68.8 (45-73) % Lymph % (Auto) 21.6 (20-40) % Hendricks % (Auto) 7.8 (2-11) % Eos % (Auto) 1.0 (0-4) % Baso % (Auto) 0.5 (0-2) % Lymph # (Auto) 1.2 (1.2-4.9) X10*3/uL Hendricks # (Auto) 0.5 (0.1-1.2) X10*3/uL Eos # (Auto) 0.1 (0.0-0.4) X10*3/uL Baso # (Auto) 0.0 (0.0-0.2) X10*3/uL Abs Immat Gran (auto) 0.02 (0.00-0.03) X10*3/uL Absolute Neuts (auto) 3.9 (2.0-8.3) x10*3/uL Absolute Nucleated RBC 0.000 (0.0-0.012) X10*3/uL Nucleated RBC % (auto) 0.0 (0.0-0.2) /100WBC Sodium 139 (135-145) mmol/L Potassium 3.9 (3.3-5.1) mmol/L Chloride 107 (96-108) mmol/L Carbon Dioxide 22 (22-29) mmol/L Anion Gap 14 (12-20) BUN 25 H (9-16) mg/dL Creatinine 1.56 H (0.5-1.4) mg/dL Estim Creat Clear Calc 25.1 Estimated GFR 33 Random Glucose 150 H (60-115) mg/dL Calcium 9.9 D (8.4-10.2) mg/dL Total Bilirubin 0.3 (0.0-1.0) mg/dL AST 20 (5-31) U/L ALT 11 (0-31) U/L Alkaline Phosphatase 50 (39-117) U/L Total Protein 9.1 H (6.5-8.0) g/dL Albumin 4.4 (3.5-5.0) g/dL Influenza Type A (PCR) POSITIVE A (Negative) Influenza Type B (PCR) NEGATIVE (Negative) RSV RNA Qual (PCR) NEGATIVE (Negative) SARS-CoV-2 RNA (RT-PCR) NEGATIVE (Negative) Prescription Management I considered prescription management with: Pain Medication ( acetaminophen/ibuprofen) Discharge Plan Discharge Clinical Impression: Influenza A Patient Disposition: Home, Self-Care Instructions: Influenza (ED) Additional Instructions: Be sure to rest, stay well hydrated drinking plenty of fluids, eat small frequent meals. Tylenol can be used as needed for fever/pain. Zofran as needed as prescribed for nausea. Aapz-quo-usqkkvl cold medications may be helpful as well for symptoms. Saline nasal spray, humidifier may be helpful for nasal congestion. You may return to the emergency department with any new or worsening symptoms or concerns. Follow-up with your primary care provider as needed. Prescriptions: New ondansetron 4 mg tablet,disintegrating 4 mg PO Q8H PRN (Reason: nausea and vomiting) Qty: 6 0RF No Action bisacodyl [Dulcolax (bisacodyl)] 5 mg tablet,delayed release (DR/EC) 20 mg PO ONCE 1 Days Qty: 4 0RF Rx Instructions: take at noon the day before colonoscopy polyethylene glycol 3350 [Miralax] 17 gram/dose powder 238 g PO ONCE 1 Days Qty: 238 0RF Rx Instructions: Take as directed by mouth the day before your procedure. carvedilol 25 mg tablet 25 mg PO BID Qty: 14 0RF Rx Instructions: must administer with a meal/food dicyclomine 20 mg tablet 20 mg PO BID Qty: 14 0RF cyclobenzaprine 5 mg tablet 5 mg PO Q8H PRN (Reason: pain (scale score 7-10)) 5 Days Qty: 14 0RF acetaminophen [Tylenol Extra Strength] 500 mg tablet 500 mg PO Q6H PRN (Reason: fever or pain) Qty: 14 0RF hydroxyzine HCl 25 mg tablet 25 mg PO TID lisinopril 30 mg tablet 30 mg PO DAILY chlorthalidone 25 mg tablet 25 mg PO DAILY pravastatin 40 mg tablet 40 mg PO DAILY ezetimibe 10 mg tablet 10 mg PO DAILY cholecalciferol (vitamin D3) 50 mcg (2,000 unit) tablet 50 mcg PO DAILY glipizide 2.5 mg tablet extended release 24hr 2.5 mg PO QPM alprazolam 0.5 mg tablet 0.5 mg PO BID PRN (Reason: Anxiety) bisacodyl [Dulcolax (bisacodyl)] 5 mg tablet,delayed release (DR/EC) 20 mg PO ONCE PRN (Reason: colonoscopy prep) 1 Days Qty: 4 0RF Rx Instructions: Day before procedure @ 12 noon Take 4 tablets by mouth followed by large glass of water polyethylene glycol 3350 [Miralax] 17 gram/dose powder 238 g PO ONCE 1 Days Qty: 238 0RF Rx Instructions: Take as directed by mouth the day before your procedure. Referrals: Jaun Gipson MD [Primary Care Provider] - Print Language: Prydeinig
[2024-12-20 21:26] LABS: MANUAL DIFF FLAG NO
[2024-12-20 21:40] LABS: Alanine Aminotransferase 11 U/L (0-31); Albumin Level 4.4 g/dL (3.5-5.0); Alkaline Phosphatase 50 U/L (39-117); Anion Gap 14 (12-20); Aspartate Amino Transferase 20 U/L (5-31); Bilirubin Total 0.3 mg/dL (0.0-1.0); Blood Urea Nitrogen 25 mg/dL (9-16); Calcium 9.9 mg/dL (8.4-10.2); Carbon Dioxide 22 mmol/L (22-29); Chloride 107 mmol/L (96-108); Creatinine Clr Calc Pharmacy 25.1; Estimated Glomerular Filt Rate 33; Glucose Random 150 mg/dL (60-115); Potassium 3.9 mmol/L (3.3-5.1); Sodium 139 mmol/L (135-145); Total Protein 9.1 g/dL (6.5-8.0)
[2024-12-20 21:47] LABS: Basophils Percent Auto 0.5 % (0-2); Eosinophils Absolute Auto 0.1 X10*3/uL (0.0-0.4); Hematocrit 35.2 % (37.0-47.0); Hemoglobin 12.1 g/dl (12.0-16.0); Imm Gran Abs Auto 0.02 X10*3/uL (0.00-0.03); Imm Gran Pct Auto 0.3 % (0.0-0.4); Lymphocytes Absolute Auto 1.2 X10*3/uL (1.2-4.9); Lymphocytes Percent Auto 21.6 % (20-40); Mean Corpuscular HGB Conc 34.4 g/dl (31.0-35.0); Mean Corpuscular Hemoglobin 30.6 pg (27.0-33.0); Mean Corpuscular Volume 89.1 fL (80.0-98.0); Mean Platelet Volume 10.2 fL (9.4-12.3); Monocytes Absolute Auto 0.5 X10*3/uL (0.1-1.2); Monocytes Percent Auto 7.8 % (2-11); Neutrophils Absolute Auto 3.9 x10*3/uL (2.0-8.3); Neutrophils Percent Auto 68.8 % (45-73); Platelet Count 205 X10*3/uL (160-400); Red Blood Count 3.95 X10*6/uL (4.20-5.50); Red Cell Distribution Width 12.6 % (11.0-16.0); White Blood Count 5.7 X10*3/uL (4.8-10.8)
[2024-12-20 22:24] LABS: Influenza A PCR POSITIVE (Negative); Influenza B PCR NEGATIVE (Negative); Resp Syncy Virus RNA Qual PCR NEGATIVE (Negative); SARS COV2 PCR INHOUSE NEGATIVE (Negative)
[2024-12-21 00:15] VITALS: BP 132/87; PULSE 96; RESP 20; TEMP 37.8; O2SAT 97
--- OUTSIDE RECORDS SUMMARY | 2024-12-21 00:36 | XMS_ITS | Clinical Summary ---
Author Organization [employer] Address [address] [place] [address] Care Team Providers Care Foreign Student Adviser Name Role Phone Fani Goodrich MD Primary Care Provider [phone] Allergies Active Allergy Reactions Criticality Noted Date Comments Aspirin 10/15/2022 Fenofibrate Other reaction(s): sensitivity Fish Oil 01/18/2018 Niacin Itching 01/19/2018 Nsaids 12/12/2015 Statins 10/15/2022 Medications ALPRAZolam (Xanax) 0.5 MG tablet Take 0.5 mg by mouth if needed at bedtime. 2 Active chlorthalidone (Hygroton) 25 MG tablet TAKE 1/2 OF A TABLET BY MOUTH EVERY DAY 2 Active glucose blood (FREESTYLE LITE) test stripIndication s:Type 2 diabetes mellitus with stage 3a chronic kidney disease, without long-term current use of insulin ([facility]) USE TO TEST BLOOD SUGAR ONCE A DAY 50 each 5 4 Active Blood Pressure Monitor [facility] Check BP daily 1 each 4 Active acetaminophen (Tylenol) 500 MG tablet Take 2 tablets (1,000 mg) by mouth every 8 (eight) hours if needed for mild pain. 60 tablet 3 5 Active hydrOXYzine HCl (Atarax) 25 MG tabletIndicatio ns:Anxiety and depression TAKE 1 TABLET BY MOUTH EVERY 8 HOURS NEEDED FOR ANXIETY / ITCHING NEEDED 60 tablet 2 5 Active gabapentin (Neurontin) 100 MG capsule Take 1 capsule (100 mg) by mouth at bedtime. 90 capsule 3 5 Active glipiZIDE XL (Glucotrol XL) 2.5 MG 24 hr tabletIndicatio ns:Type 2 diabetes mellitus with stage 3a chronic kidney disease, without long-term current use of insulin ([facility]) TAKE 1 TABLET BY MOUTH ONCE DAILY WITH MEAL IN AM 90 tablet 5 Active ezetimibe (Zetia) 10 MG tablet Take 1 tablet (10 mg) by mouth Once per day. 90 tablet 3 5 Active lisinopril 30 MG tablet Take 1 tablet (30 mg) by mouth Once per day. 30 tablet 5 5 Active carvedilol (Coreg) 12.5 MG tablet TAKE 0.5 TABLET (12.5 MG) BY ORAL ROUTE IN THE AM AND 1 TABLET (25 MG) IN THE PM WITH FOOD 180 tablet 3 5 Active cyclobenzaprine (Flexeril) 10 MG tabletIndicatio ns:Low back pain with radiation Take 0.5 tablets (5 mg) by mouth if needed at bedtime for muscle spasms. 30 tablet 1 5 Active omeprazole (PriLOSEC) [address] capsule Take 1 capsule (20 mg) by mouth before breakfast. Do not crush or chew. 90 capsule 3 5 10/24/19 26 Active cholecalciferol VITAMIN D (Vitamin D-3) 50 MCG (1999 UT) tabletIndicatio ns:Vitamin D deficiency TAKE 1 TABLET BY ORAL ROUTE EVERY DAY 90 tablet 1 5 Active lidocaine (Lidoderm) 5 % patchIndication s:Low back pain with radiation Apply 1 patch topically Once per day. Remove & discard patch within 12 hours or as directed by . 30 patch 11 5 Active amoxicillin (Amoxil) 500 MG capsule Take 1 capsule (500 mg) by mouth every 8 (eight) hours for 7 days. 21 capsule 5 11/23/19 25 acetaminophen (Tylenol) 500 MG tablet Take 1 tablet (500 mg) by mouth every 6 (six) hours if needed for mild pain for up to 10 days. 15 tablet 5 11/26/19 25 chlorhexidine (Peridex) 0.12 % solution Use 15 mL in the mouth or throat if needed (for mouthwash 15 ml for 30 seconds, swish and spit) for up to 14 days. 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 Chronic left shoulder pain 10/18/2022 Assessment & Plan (07/05/2024 2:02 PM EDT): - Received steroid injection by [facility] Orthopedic provider on 02/03/23 -Pt reports acetaminophen 1,000mg gives minimal relief; pt has contraindications for NSAIDs due to CKD -Given tramadol for short course prior to steroid injection treatment -Continue APAP and episodic treatment with steroid injection Assessment & Plan (04/21/2023 1:36 PM EDT): - Received steroid injection by [facility] Orthopedic provider on 02/03/23 -Pt reports acetaminophen 1,000mg gives minimal relief; pt has contraindications for NSAIDs due to CKD -Given tramadol for short course prior to steroid injection treatment -Continue APAP and episodic treatment with steroid injection Assessment & Plan (01/26/2023 12:57 PM EDT): Upcoming appt with Orthopedist on 02/03/23 -Pt reports acetaminophen 1,000mg gives minimal relief; pt has contraindications for NSAIDs due to CKD -Rx Tramadol for short term and for moderate to severe pain, only to take at night Assessment & Plan (10/18/2022 6:38 AM EST): -Followed by [facility] provider -Dx impingement syndrome -Continue judicious use of steroid injection treatment Anxiety and depression 10/18/2022 Assessment & Plan (10/24/2024 1:06 PM EST): -[facility] provider: SEBASTIAN, psychiatrist - Dr. Nicolas -Continue judicious use of alprazolam -Continue hydroxyzine prn Assessment & Plan (09/04/2023 6:38 AM EST): -[facility] provider: SEABSTIAN, psychiatrist - Dr. Nicolas -Continue judicious use of alprazolam -Continue hydroxyzine prn Assessment & Plan (04/20/2023 4:15 PM EDT): -[facility] provider: Mary, psychiatrist - Dr. Nicolas -Continue judicious use of alprazolam -Continue hydroxyzine prn Assessment & Plan (10/18/2022 6:43 AM EST): -[facility] provider: SEBASTIAN, psychiatrist - Dr. Nicolas -Continue judicious use of alprazolam -Continue hydroxyzine prn Splenic artery aneurysm 10/15/2022 Assessment & Plan (10/15/2022 5:50 AM EST): -Incidental finding on CT scan -Evaluated by vascular surgeon, Dr. Jay -Given reassurance since it is small and stable Low back pain with radiation 10/15/2022 Assessment & Plan (10/30/2024 10:14 AM EST): -Continue APAP and judicious use of cyclobenzaprine prn -Recommended home back exercise and/or physical therapy -Add lidocaine patch Assessment & Plan (07/05/2024 2:03 PM EDT): -Continue APAP and judicious use of cyclobenzaprine prn -Recommended home back exercise and/or physical therapy Assessment & Plan (10/15/2022 5:55 AM EST): -Continue APAP and judicious use of gabapentin 100-200 mg at bedtime -Recommended home back exercise and/or physical therapy Chronic depression 12/12/2015 Essential hypertension 09/11/2015 Assessment & Plan (10/24/2024 1:05 PM EST): -Goal BP < 140/90 per JNC-8, <130/80 per ACC/AHA. BP is at goal today -Hx [place] hypertension. -BP easily affected by her anxiety level. -Following with her mortgage analyst, Dr. Henry, annual F/U -Following with Dr. James, bosom presser, on 05/12/22 -Continue Carvedilol, pt has been taking 25 mg BID, advised to monitor her BP and if her systolic BP is <110, pt advised to take 12.5 mg. -Continue lisinopril 30 mg daily. -Continue chlorthalidone 12.5 mg daily -continue home BP check Treatment Hx: Discontinued chlorthalidone due to CKD, hypokalemia and hypotension. Discontinued HCTZ in January 2017 since it was low dose and she had hypokalemia. Atenolol was recently switched to Coreg. Discontinued bumetanide due to hypokalemia and slight decrease in renal function. Discontinued spironolactone due to hyperkalemia and HARI. Discontinue hydralazine due to hypotension and confusion with hydroxyzine. Discontinue amlodipine due to low BP and edema Assessment & Plan (07/05/2024 1:58 PM EDT): -Goal BP < 140/90 per JNC-8, <130/80 per ACC/AHA. BP is at goal today -Hx [place] hypertension. -BP easily affected by her anxiety level. -Following with her mortgage analyst, Dr. Henry, annual F/U -Following with Dr. James, bosom presser, on 05/12/22 -Continue Carvedilol, pt has been taking 25 mg BID, advised to monitor her BP and if her systolic BP is <110, pt advised to take 12.5 mg. -Continue lisinopril 30 mg daily. -Continue chlorthalidone 12.5 mg daily -continue home BP check Treatment Hx: Discontinued chlorthalidone due to CKD, hypokalemia and hypotension. Discontinued HCTZ in January 2017 since it was low dose and she had hypokalemia. Atenolol was recently switched to Coreg. Discontinued bumetanide due to hypokalemia and slight decrease in renal function. Discontinued spironolactone due to hyperkalemia and HARI. Discontinue hydralazine due to hypotension and confusion with hydroxyzine. Discontinue amlodipine due to low BP and edema Assessment & Plan (09/04/2023 6:35 AM EST): -Goal BP < 140/90 per JNC-8, <130/80 per ACC/AHA. BP is at goal today -Hx [place] hypertension. -BP easily affected by her anxiety level. -Following with her mortgage analyst, Dr. Henry, annual F/U -Following with Dr. James, bosom presser, on 05/12/22 -Continue Carvedilol, pt has been taking 25 mg BID, advised to monitor her BP and if her systolic BP is <110, pt advised to take 12.5 mg. -Continue lisinopril 30 mg daily. -Continue chlorthalidone 12.5 mg daily -continue home BP check -Follow-up in 4-6 mo Treatment Hx: Discontinued chlorthalidone due to CKD, hypokalemia and hypotension. Discontinued HCTZ in January 2017 since it was low dose and she had hypokalemia. Atenolol was recently switched to Coreg. Discontinued bumetanide due to hypokalemia and slight decrease in renal function. Discontinued spironolactone due to hyperkalemia and HARI. Discontinue hydralazine due to hypotension and confusion with hydroxyzine. Discontinue amlodipine due to low BP and edema Assessment & Plan (04/20/2023 4:18 PM EDT): -Goal BP < 140/90 per JNC-8, <130/80 per ACC/AHA. BP is at goal today -Hx [place] hypertension. -BP easily affected by her anxiety level. -Following with her mortgage analyst, Dr. Henry, annual F/U -Following with Dr. James, bosom presser, on 05/12/22 -Continue Carvedilol, pt has been taking 25 mg BID, advised to monitor her BP and if her systolic BP is <110, pt advised to take 12.5 mg. -Continue lisinopril 30 mg daily. -Continue chlorthalidone 12.5 mg daily -continue home BP check -Follow-up in 4-6 mo Treatment Hx: Discontinued chlorthalidone due to CKD, hypokalemia and hypotension. Discontinued HCTZ in January 2017 since it was low dose and she had hypokalemia. Atenolol was recently switched to Coreg. Discontinued bumetanide due to hypokalemia and slight decrease in renal function. Discontinued spironolactone due to hyperkalemia and HARI. Discontinue hydralazine due to hypotension and confusion with hydroxyzine. Discontinue amlodipine due to low BP and edema Assessment & Plan (01/26/2023 11:43 AM EDT): -Goal BP < 140/90 per JNC-8, <130/80 per ACC/AHA. BP is at goal today -Hx [place] hypertension. -BP easily affected by her anxiety level. -Following with her mortgage analyst, Dr. Henry, annual F/U -Following with Dr. James, bosom presser, on 05/12/22 -Continue Carvedilol 12.5mg in qAM and 25mg qPM. -Continue lisinopril 30 mg daily. -Continue chlorthalidone 12.5 mg daily -continue home BP check -Follow-up in 4-6 mo Treatment Hx: Discontinued chlorthalidone due to CKD, hypokalemia and hypotension. Discontinued HCTZ in January 2017 since it was low dose and she had hypokalemia. Atenolol was recently switched to Coreg. Discontinued bumetanide due to hypokalemia and slight decrease in renal function. Discontinued spironolactone due to hyperkalemia and HARI. Discontinue hydralazine due to hypotension and confusion with hydroxyzine. Discontinue amlodipine due to low BP and edema Assessment & Plan (10/15/2022 5:53 AM EST): -Goal BP < 140/90 per JNC-8, <130/80 per ACC/AHA. BP at goal at last visit -Hx [place] hypertension. -BP easily affected by her anxiety level. -Following with her mortgage analyst, Dr. Henry, annual F/U -Following with Dr. James, bosom presser, on 05/12/22 -Continue Carvedilol 12.5mg in qAM and 25mg qPM. -Continue lisinopril 30 mg daily. -Continue chlorthalidone 12.5 mg daily -continue home BP check -Follow-up in 4-6 mo Treatment Hx: Discontinued chlorthalidone due to CKD, hypokalemia and hypotension. Discontinued HCTZ in January 2017 since it was low dose and she had hypokalemia. Atenolol was recently switched to Coreg. Discontinued bumetanide due to hypokalemia and slight decrease in renal function. Discontinued spironolactone due to hyperkalemia and HARI. Discontinue hydralazine due to hypotension and confusion with hydroxyzine. Discontinue amlodipine due to low BP and edema Tubular adenoma 09/11/2015 Assessment & Plan (10/24/2024 1:06 PM EST): -Last colonoscopy on 05/03/[address] Galvez in [facility] -Referred her back to GI for colonoscopy; pt has not received appt yet Assessment & Plan (09/04/2023 6:37 AM EST): -Last colonoscopy on 05/03/[address] Galvez in [facility] -Referred her back to GI for colonoscopy; pt has not received appt yet Assessment & Plan (10/18/2022 6:37 AM EST): -Last colonoscopy on 05/03/[address] Galvez in [facility] -Will refer her back to GI for colonoscopy Type 2 diabetes mellitus 09/11/2015 Assessment & Plan (10/30/2024 10:13 AM EST): -A1C 6.3% on 10/24/24 -Continue working on lifesytle modifications -Continue glipizide ER 2.5 mg daily, patient had hypoglycemia today, will consider discontinuing glipizide and trying a new medication -Discontinued glipizide in Nov 2015, but restarted in January 2022 due to worsening glycemic control -Continue SMBG -Last eye exam: 03/31/22, no DM retionpathy, early cataract. [facility] eye care. -Last foot exam: 10/24/24 -Last microalbumin test: 08/2023 UACR 6.2, no microalbuminuria -Last lipid profile: 07/05/24 -Last dental exam: Immunizations: Not up to date, pt declines Assessment & Plan (07/05/2024 2:01 PM EDT): -A1C 6.2% on 07/05/24 -Continue working on lifesytle modifications -Continue glipizide ER 2.5 mg daily, patient had hypoglycemia today, will consider discontinuing glipizide and trying a new medication -Discontinued glipizide in Nov 2015, but restarted in January 2022 due to worsening glycemic control -Continue SMBG -Last eye exam: 03/31/22, no DM retionpathy, early cataract. [facility] eye care. -Last foot exam: 07/05/24 -Last microalbumin test: 08/2023 UACR 6.2, no microalbuminuria -Last lipid profile: 09/03/23 -Last dental exam: Immunizations: Not up to date, pt declines Assessment & Plan (09/04/2023 6:37 AM EST): -A1C 6.4% on 09/03/23, lately higher -Continue working on lifesytle modifications -Continue glipizide ER 2.5 mg daily -Discontinued glipizide in Nov 2015, but restarted in January 2022 due to worsening glycemic control -Continue SMBG -Last eye exam: 03/31/22, no DM retionpathy, early cataract. [facility] eye care. -Last foot exam: 09/03/23 -Last microalbumin test: 07/22/21 UACR 6, Hx microalbuminuria -Last lipid profile: 01/27/23 TC 237; TG 505; HDL 39; LDL unable to be calculated -Last dental exam: Immunizations: Not up to date, pt declines Assessment & Plan (04/20/2023 4:14 PM EDT): -A1c 6.1% 10/14/22 -Continue working on lifesytle modifications -Continue glipizide ER 2.5 mg daily -Discontinued glipizide in Nov 2015, but restarted in January 2022 due to worsening glycemic control -Continue SMBG -Last eye exam: 03/31/22, no DM retionpathy, early cataract. [facility] eye care. -Last foot exam: 10/14/22 -Last microalbumin test: 07/22/21 UACR 6, Hx microalbuminuria -Last lipid profile: 01/27/23 TC 237; TG 505; HDL 39; LDL unable to be calculated -Last dental exam: Immunizations: Not up to date, pt declines Assessment & Plan (01/26/2023 11:49 AM EDT): -A1c 6.1% 10/14/22 -Continue working on lifesytle modifications -Continue glipizide ER 2.5 mg daily -Discontinued glipizide in Nov 2015, but restarted in January 2022 due to worsening glycemic control -Continue SMBG -Last eye exam: 03/31/22, no DM retionpathy, early cataract. [facility] eye care. -Last foot exam: 10/14/22 -Last microalbumin test: 07/22/21 UACR 6, Hx microalbuminuria -Last lipid profile: 07/22/21 TC 24; TG 482; HDL 37; LDL unable to be calculated, Marked hypertriglyceridemia -Last dental exam: Immunizations: Not up to date, pt declines Assessment & Plan (10/18/2022 6:39 AM EST): -A1c 6.1% today 10/14/22 -Continue working on lifesytle modifications -Continue glipizide ER 2.5 mg daily -Discontinued glipizide in Nov 2015, but restarted in January 2022 due to worsening glycemic control -Continue SMBG -Last eye exam: 03/31/22, no DM retionpathy, early cataract. [facility] eye care. -Last foot exam: 10/14/22 -Last microalbumin test: 07/22/21 UACR 6, Hx microalbuminuria -Last lipid profile: 07/22/21 TC 24; TG 482; HDL 37; LDL unable to be calculated, Marked hypertriglyceridemia -Last dental exam: Immunizations: Not up to date, pt declines Chronic kidney disease (CKD), stage III (moderat e) 04/24/2015 Assessment & Plan (10/24/2024 1:11 PM EST): -Seen by Dr James, Library Circulation Assistant, last seen on 05/12/22, q6m -09/03/23 UACR 6.2 12/11/20 BUN 18; SCr 1.23; eGFR 45; K 3.8 -Chlorthalidone was discontinued due to high risk for hypotension / renal hypoperfusion, but she is still being prescribed and taking it. -Continue lisinopril and carvedilol is with caution -HARI due to renal hypoperfusion / iatrogenic hypotension -Avoid nephrotoxic drugs and use renal dosing. -Monitor K. -Pt is recommended to make an appointment with the bosom presser as it has been a couple of years; we discussed looking into PT[facility] for transportation to the appointment Assessment & Plan (07/05/2024 3:06 PM EDT): -Seen by Dr James, Library Circulation Assistant, last seen on 05/12/22, q6m -09/03/23 UACR 6.2 12/11/20 BUN 18; SCr 1.23; eGFR 45; K 3.8 -Chlorthalidone was discontinued due to high risk for hypotension / renal hypoperfusion, but she is still being prescribed and taking it. -Continue lisinopril and carvedilol is with caution -HARI due to renal hypoperfusion / iatrogenic hypotension -Avoid nephrotoxic drugs and use renal dosing. -Monitor K. Assessment & Plan (09/04/2023 6:36 AM EST): -Seen by Dr James, Library Circulation Assistant, last seen on 05/12/22, q6m -12/11/20 UACR 28 12/11/20 BUN 18; SCr 1.23; eGFR 45; K 3.8 -Chlorthalidone was discontinued due to high risk for hypotension / renal hypoperfusion, but she is still being prescribed and taking it. -Continue lisinopril and carvedilol is with caution -HARI due to renal hypoperfusion / iatrogenic hypotension -Avoid nephrotoxic drugs and use renal dosing. -Monitor K. Assessment & Plan (01/26/2023 11:40 AM EDT): -Seen by Dr James, Library Circulation Assistant, last seen on 05/12/22, q6m -12/11/20 UACR 28 12/11/20 BUN 18; SCr 1.23; eGFR 45; K 3.8 -Chlorthalidone was discontinued due to high risk for hypotension / renal hypoperfusion, but she is still being prescribed and taking it. -Continue lisinopril and carvedilol is with caution -HARI due to renal hypoperfusion / iatrogenic hypotension -Avoid nephrotoxic drugs and use renal dosing. -Monitor K. Assessment & Plan (10/15/2022 5:59 AM EST): -Seen by Dr James, Library Circulation Assistant, last seen on 05/12/22, q6m -12/11/20 UACR 28 12/11/20 BUN 18; SCr 1.23; eGFR 45; K 3.8 -Chlorthalidone was discontinued due to high risk for hypotension / renal hypoperfusion, but she is still being prescribed and taking it. -Continue lisinopril and carvedilol is with caution -HARI due to renal hypoperfusion / iatrogenic hypotension -Avoid nephrotoxic drugs and use renal dosing. -Monitor K. Hematuria 08/25/2012 Overview (10/15/2022): Microscopic benign Assessment & Plan (10/15/2022 5:59 AM EST): -evaluated by urologist -Cystoscopy and IVP were normal Hypertriglyceridemia 08/25/2012 Assessment & Plan (10/30/2024 10:14 AM EST): -Current medications: Zetia 10 mg daily self discontinued pravastatin 20 mg qhs; self-discontinued atorvastatin 40 mg qhs,which was switched from rosuvastatin in April 2019 due to CKD -Last lipid profile: Jun 2024 -Treatment Hx: Niacin; fenofibrate; fish oil-discontinued due to intolerance, discontinued rosuvastatin due to CKD, discontinued atorvastatin due to itchiness discontinued pravastatin and vascepa According to ACC/AHA guideline, 10-year ASCVD risk is >10% and high -intensity statin therapy is recommended. Emphasized the importance of lifestyle modification. -Repeat fasting lipid profile in 3 mo. -Work on lifestyle modification. Assessment & Plan (07/05/2024 2:02 PM EDT): -Current medications: Zetia 10 mg daily self discontinued pravastatin 20 mg qhs; self-discontinued atorvastatin 40 mg qhs,which was switched from rosuvastatin in April 2019 due to CKD -Last lipid profile: 09/03/23 -Treatment Hx: Niacin; fenofibrate; fish oil-discontinued due to intolerance, discontinued rosuvastatin due to CKD, discontinued atorvastatin due to itchiness discontinued pravastatin and vascepa According to ACC/AHA guideline, 10-year ASCVD risk is >10% and high -intensity statin therapy is recommended. Emphasized the importance of lifestyle modification. -Repeat fasting lipid profile in 3 mo. -Work on lifestyle modification. Assessment & Plan (09/04/2023 6:38 AM EST): -Current medications: Zetia 10 mg daily self discontinued pravastatin 20 mg qhs; self-discontinued atorvastatin 40 mg qhs,which was switched from rosuvastatin in April 2019 due to CKD -Last lipid profile: 01/27/23 TC 237; TG 505; HDL 39; LDL unable to be calculated -Treatment Hx: Niacin; fenofibrate; fish oil-discontinued due to intolerance, discontinued rosuvastatin due to CKD, discontinued atorvastatin due to itchiness discontinued pravastatin and vascepa According to ACC/AHA guideline, 10-year ASCVD risk is >10% and high -intensity statin therapy is recommended. Emphasized the importance of lifestyle modification. -Repeat fasting lipid profile in 3 mo. -Work on lifestyle modification. Assessment & Plan (04/20/2023 4:14 PM EDT): -Current medications: Zetia 10 mg daily self discontinued pravastatin 20 mg qhs; self-discontinued atorvastatin 40 mg qhs,which was switched from rosuvastatin in April 2019 due to CKD -Last lipid profile: 01/27/23 TC 237; TG 505; HDL 39; LDL unable to be calculated -Treatment Hx: Niacin; fenofibrate; fish oil-discontinued due to intolerance, discontinued rosuvastatin due to CKD, discontinued atorvastatin due to itchiness discontinued pravastatin and vascepa According to ACC/AHA guideline, 10-year ASCVD risk is >10% and high -intensity statin therapy is recommended. Emphasized the importance of lifestyle modification. -Repeat fasting lipid profile in 3 mo. -Work on lifestyle modification. Assessment & Plan (01/26/2023 11:48 AM EDT): -Current medications: Zetia 10 mg daily self discontinued pravastatin 20 mg qhs; self-discontinued atorvastatin 40 mg qhs,which was switched from rosuvastatin in April 2019 due to CKD -Last lipid profile: 07/22/21 TC 24; TG 482; HDL 37; LDL unable to be calculated, Marked hypertriglyceridemia -Treatment Hx: Niacin; fenofibrate; fish oil-discontinued due to intolerance, discontinued rosuvastatin due to CKD, discontinued atorvastatin due to itchiness discontinued pravastatin and vascepa According to ACC/AHA guideline, 10-year ASCVD risk is >10% and high -intensity statin therapy is recommended. Emphasized the importance of lifestyle modification. -Repeat fasting lipid profile in 3 mo. -Work on lifestyle modification. Assessment & Plan (10/15/2022 5:57 AM EST): -Current medications: Zetia 10 mg daily self discontinued pravastatin 20 mg qhs; self-discontinued atorvastatin 40 mg qhs,which was switched from rosuvastatin in April 2019 due to CKD -Last lipid profile: 07/22/21 TC 24; TG 482; HDL 37; LDL unable to be calculated, Marked hypertriglyceridemia -Treatment Hx: Niacin; fenofibrate; fish oil-discontinued due to intolerance, discontinued rosuvastatin due to CKD, discontinued atorvastatin due to itchiness discontinued pravastatin and vascepa According to ACC/AHA guideline, 10-year ASCVD risk is >10% and high -intensity statin therapy is recommended. Emphasized the importance of lifestyle modification. -Repeat fasting lipid profile in 3 mo. -Work on lifestyle modification. Resolved Problems Problem Noted Date Diagnosed Date Resolved Date Hypokalemia 09/05/2014 10/15/2022 Postmenopausal symptoms 09/05/201409/19 Encounters Date Type Department Care Team Description 12/01/2024 Telephone [facility] MEDICINE [address] [place] [address] Fani Goodrich MD PT-1 Submitted 11/16/2024 1:00 PM EST Office Visit [facility] ADULT DENTAL [address] [place] [address] [phone] Carranza-Parmar, Elizabeth, DDS Tipped teeth (Primary Dx); Dental calculus; Pain, dental 10/24/2024 1:00 PM EST Office Visit [facility] MEDICINE [address] [place] [address] Fani Goodrich MD Essential hypertension (Primary Dx); Stage 3a chronic kidney disease (CMS/HCC); Type 2 diabetes mellitus with stage 3a chronic kidney disease, without long-term current use of insulin ([facility]/HCC); Tubular adenoma; Anxiety and depression; Hypertriglyceridemia; Low back pain with radiation; Vitamin D deficiency; Dietary counseling; Exercise counseling; Overweight 10/24/2024 Travel 10/21/2024 Abstract [facility] [address] [facility] [place] [address] Samaria Monte MA 10/21/2024 Telephone [facility] [address] [facility] [place] [address] Samaria Monte MA chart prep from Last 3 Months Immunizations Name Administration Dates Next Due Hep B, adult 09/25/1997,05/18/1997,04/20/1997 Pneumococcal Conjugate PCV 13 03/24/2016 Pneumococcal Polysaccharide PPSV23 05/05/2019,,06/18/2000 TD (adult), 2 Lf tetanus tox oid, preservative free, adsorbed 07/22/2007,06/09/1991 Tdap 04/29/2013 Zoster, Recombinant 05/03/2020,10/17/2019 Zoster, live 03/26/2015 Social History Tobacco Use Types Packs/Day Years Used Date Smoking Tobacco: Never Passive Smoke Exposure: Never Smokeless Tobacco: Never Tobacco Cessation:Counseling Given: Not Answered Depression Answer Date Recorded Patient Health Questionnaire-9 Score 0 07/05/2024 Patient Health Questionnaire-9 Score 0 07/05/2024 Last PHQ-9: Questionnaire Data Not on file 0 07/05/2024 Housing Stability Answer Date Recorded What is your housing situation today? I have roya mckeon 03/01/[address] you li ve. Do you have problems with any of the following? None of the above 03/01/2024 Food Insecurity Answer Date Recorded Within the past 12 months, y ou worried that your food would run out before you got money to buy more: Never True 03/01/2024 Within the past 12 months,th e food you bought just didn't last and you didn't have enough money to get more: Never True Transportation Answer Date Recorded In the past 12 months, has l ack of transportation kept you from medical appts, meetings, work or from getting things needed for daily living? No 03/01/2024 Utilities Answer Date Recorded In the past 12 months, has t he electric, gas, oil or water company threatened to shut off services in your home? No 03/01/2024 Depression Answer Date Recorded Patient Health Questionnaire-2 Score 0 07/05/2024 Comments Unknown Sex and Gender Information Value Date Recorded Sex Assigned at Female 08/18/2022 10:14 AM EDT Legal Sex Female 10:14 AM EDT Gender Identity Female 08/18/2022 10:14 AM EDT Sexual Orientation Choose not to disclose 2021 10:14 AM EDT Last Filed Vital Signs Vital Sign Reading Time Taken Comments Blood Pressure 120/78 11/16/2024 1:11 PM EST Pulse 64 10/24/2024 1:03 PM EST Temperature 35.8 ??C (96.4 ??F) 10/24/2024 1:03 PM ES T Respiratory Rate 20 10/24/2024 1:03 PM EST Oxygen Saturation 99% 10/24/2024 1:03 PM EST Inhaled Oxygen Concentration - - Weight 58.7 kg (129 lb 6.4 oz) 10/24/2024 1:03 P M EST Height 152.1 cm (4' 11.89 ) 10/24/2024 1:[address] Body Mass Index 25.36 10/24/2024 1:03 PM EST Plan of Treatment Upcoming Encounters Date Type Department Care Team (Late st Contact Info) Description 01/11/2025 2:00 PM EDT Office Visit [facility] ADULT DENTAL [address] [place] [address] Lianne, Gricel [address] [place] [address] 02/21/2025 2:15 PM EDT Office Visit [facility] MEDICINE [address] [place] [address] Fani Goodrich MD [address] [place] [address] 03/16/2025 2:30 PM EDT Office Visit [facility] OPTOMETRY [address] [place] [address] Aleshia Iraheta, OD [address] [place] [address] Health Maintenance Due Date Last Done Comments CT Colonography 1951 Dental Oral Exam 1950 Dental Prophylaxis 1951 Dental X-Ray: Full Mouth 1951 FIT DNA/Cologuard 1950 FIT 1950 FOBT 1950 Sigmoidoscopy 1950 Eye Exam 1961 Alcohol/Substance Use Screening 1963 Hepatitis C Screening 1969 RSV Patients and Patients Aged 60 years or older (1 - Risk 60-74 years 1-dose series) 2011 DTaP/Tdap/Td Vaccines (2 - Td or Tdap) 04/29/2023 04/29/2013, 07/22/2007, 06/09/1991 COVID-19 Vaccine ( season) 2024 01/09/2021, 12/12/2020 Influenza Vaccine (#1) 2024 SDOH Screening 03/01/2025 03/01/2024 Diabetes: Hemoglobin A1C 04/23/2025 025, 07/05/2024, 09/03/2023, Additional history exists Depression Screening 07/05/2025 07/05/2024, 07/05/20 24 Lipid Panel 07/05/2025 07/05/2024, 06/19, 09/03/2023, Additional history exists Diabetes: Foot Exam 10/24/2025 10/24/2024, 09/03/2023, 09/03/2023, Additional history exists Tobacco Screening 11/16/2025 11/16/2024 Dental X-Ray: Bitewings 11/17/2025 11/16/2024 Mammogram 06/03/2026 06/03/2024, 03/20, 04/26/2018, Additional history exists Colonoscopy 06/16/2029 06/16/2024, 05/03/2015 Colorectal Cancer Screening 06/16/2029 Hepatitis B Vaccines Completed 09/25/1997, 05/18/1997, 04/20/1997 Pneumococcal Vaccine: 50+ Years Completed 05/05/2019, 03/24/2016, 12/13/2013, Additional history exists Zoster Vaccines Completed 05/03/2020, 12, 03/26/2015 HIB Vaccines Aged Out No longer eligi ble based on patient's age to complete this topic HPV Vaccines Aged Out No longer eligi ble based on patient's age to complete this topic Hepatitis A Vaccines Aged Out No long er eligible based on patient's age to complete this topic IPV Vaccines Aged Out No longer eligi ble based on patient's age to complete this topic Meningococcal Vaccine Aged Out No shine carolina eligible based on patient's age to complete this topic RSV under 20 months Aged Out No longe r eligible based on patient's age to complete this topic Rotavirus Vaccines Aged Out No longer eligible based on patient's age to complete this topic Procedures Procedure Name Priority Date/Time Associated Diagnosis Comments BITEWING - SINGLE RADIOGRAPHIC IMAGE Routine 11/16/2024 1:00 PM EST Tipped teeth Dental calculus Pain, dental INTRAORAL - PERIAPICAL FIRST RADIOGRAPHIC IMAGE Routine 11/16/2024 1:00 PM EST Tipped teeth Dental calculus Pain, dental CASE PRESENTATION, DETAILED AND EXTENSIVE TREATMENT PLANNING Routine 11/16/2024 1:00 PM EST Tipped teeth Dental calculus Pain, dental PALLIATIVE (EMERGENCY) TREATMENT OF DENTAL PAIN - MINOR PROCEDURE Routine 11/16/2024 1:00 PM EST Tipped teeth Dental calculus Pain, dental 19 EXTRACTION Routine 11/16/2024 12:00 AM EST POCT GLYCATED HEMOGLOBIN, TOTAL Routine 10/24/2024 1:05 PM EST Type 2 diabetes mellitus with stage 3a chronic kidney disease, without long-term current use of insulin (CMS/HCC) POCT GLUCOSE Routine 10/24/2024 1:04 PM EST Type 2 diabetes mellitus with stage 3a chronic kidney disease, without long-term current use of insulin (CMS/HCC) LIPID PANEL WITH REFLEX TO DIRECT LDL Routine 07/05/2024 2:00 PM EDT Hypertriglyceridem ia HM COLONOSCOPY Routine 06/16/2024 BI MAMMOGRAM SCREENING TOMOSYNTHESIS BILATERAL Routine 06/03/2024 10:55 AM EDT Breast cancer screening by mammogram from Last 3 Months or Most Recently Relevant to Health Maintenance Results * (ABNORMAL) POCT HGB A1C (10/24/2024 1:05 PM EST) Hemoglobin A1C 6.3(A) 4.0 - 6.0 % QC Media Lot # [id number] Lot# Expiration Date Blood 10/24/2024 1:05 PM EST Fani Goodrich MD POINT OF CARE TEST ENTER/EDIT OR DERABLES Final Result * POCT Glucose (10/24/2024 1:04 PM EST) Glucose Blood, POC 116 60 - 200 mg/dL QC Media Lot # [id number] Lot# Expiration Date , Blood Capillary blood specimen / Unknown 10/24/2024 1:04 PM EST Fani Goodrich MD POINT OF CARE TEST ENTER/EDIT OR DERABLES Final Result * (ABNORMAL) Lipid Panel with Reflex to Direct LDL (07/05/2024 2:00 PM EDT) Triglycerides 764(H) <150 mg/dL [facility] Comment:Desirable Triglyceri de: less than 150 mg/dLBorderline High Triglyceride 150-199 mg/dLHigh Triglyceride: 200-499 mg/dLVery High Triglyceride: greater than or equal to 5OO mg/dL Cholesterol 250(H) <200 mg/dL [facility] Comment:Desirable Cholestero l: less than 200 mg/dLBorderline High Cholesterol: 200-239 mg/dLHigh Cholesterol: greater than 239 mg/dL LDL Cholesterol Calculated TNP <100 mg/dL [facility] Comment:Unable to calculate the LDL. The formula of Friedwald,Velez, and John is only valid if the triglycerides areless than 400 mg/dl. HDL Cholesterol 36(L) >40 mg/dL [facility] Comment:Desirable HDL: great er than 40 mg/dL Note: This HDL assay may give artificially low results in patients with liver disease. Blood 07/05/2024 2:00 PM EDT 07/05/2024 4:22 PM EDT Fani Goodrich MD LAB BLOOD ORDERABLES Final Resul t [facility] [address] [place] [address] [phone] * Hm Colonoscopy (06/16/2024) Colonoscopy Normal Normal Comment:polyp hemorrhoids 06/16/2024 us Historical Provider HEALTH MAINTENANCE Final Result * BI Mammogram Screening Tomosynthesis Bilateral (06/03/2024 10:55 AM EDT) Anatomical Region Laterality Modality Breast Bilateral Mammography 06/03/2024 10:5 5 AM EDT Narrative 07/02/2024 3:35 PM EDT ? [facility] ? [address] ?[place] [address] ? Mammography Report ? Signed ? Patient: Ame,Natalie ?MR#: [id number] ?? [id number] ? : 1950 ?Acct:[id number] ? Age/Sex: 74 / F ?ADM Date: 08/16/24 ? Loc: HO.MAMMO ? Attending Dr: Fani Goodrich MD ? Ordering Physician: Fani Goodrich MD ?Results: 1Negative ? Date of Service: 06/03/24 ?Follow Up: 1 Year From Orig ?? inal Mammogram ? Procedure(s): MM tomosynthesis screening BI ?? Accession Number(s): [id number] ? cc: Fani Goodrich MD ? EXAMINATION: ?? MM SCREENING DIGITAL BREAST TOMOSYNTHESIS, BILATERAL ? CLINICAL INFORMATION: ? Screening. Asymptomatic. ? COMPARISON: ?? Mammography: This study is compared with prior exams dating back to ? 2018. ? TECHNIQUE: ?? Digital breast tomosynthesis is performed in both the craniocaudal and ?? mediolateral oblique views along with computer-aided detection (CAD). ? Synthesized 2D images are generated from the tomosynthesis. ? FINDINGS: ?? There are scattered areas of fibroglandular density (ACR BI-RADS breast ?? composition Category b). ? There are no significant masses, abnormal calcifications, or other ?? abnormalities. ? MM/MM tomosynthesis screening BI ?? IMPRESSION: ?? No mammographic evidence of malignancy. ? ASSESSMENT: ? BI-RADS BI-RADS 1 - Negative ? RECOMMENDATION: ?? Routine annual mammography screening. ? 1 year F/U ? This examination should not preclude the clinical evaluation of a ?? suspicious palpable abnormality. ? This patient's information was entered into a reminder system with a ?? target due date for their next mammogram. ? Electronically signed by: ??Pina Pearce MD ??07/02/2024 03:32 PM EDT RP ? Dictated By: ?Pina Pearce MD ? Signed By: ?<Electronically signed by Pina Pearce MD in OV> ? 07/02/24 1532 ? DD/ 1055 ? TD/TT: 06/03/24 1110 ? Mainframe Systems Engineer: ? Procedure Note [place], Anaya - 09/14/2024 [facility] [address] [place], [place] [address] Mammography Report Signed Patient: Holli Mccloud#: [id number] : 1950cct:[id number] Age/Sex: 74 / FADM Date: 06/03/24 Loc: HO.MAMMO Attending Dr: Fani Goodrich MD Ordering Physician: Fani Goodrich MDResults: 1Negative Date of Service: 06/03/24Follow Up: 1 Year From Orig inal Mammogram Procedure(s): MM tomosynthesis screening BI Accession Number(s): [id number] cc: Fani Goodrich MD EXAMINATION: MM SCREENING DIGITAL BREAST TOMOSYNTHESIS, BILATERAL CLINICAL INFORMATION: Screening. Asymptomatic. COMPARISON: Mammography: This study is compared with prior exams dating back to 2018. TECHNIQUE: Digital breast tomosynthesis is performed in both the craniocaudal and mediolateral oblique views along with computer-aided detection (CAD). Synthesized 2D images are generated from the tomosynthesis. FINDINGS: There are scattered areas of fibroglandular density (ACR BI-RADS breast composition Category b). There are no significant masses, abnormal calcifications, or other abnormalities. MM/MM tomosynthesis screening BI IMPRESSION: No mammographic evidence of malignancy. ASSESSMENT: BI-RADS BI-RADS 1 - Negative RECOMMENDATION: Routine annual mammography screening. 1 year F/U This examination should not preclude the clinical evaluation of a suspicious palpable abnormality. This patient's information was entered into a reminder system with a target due date for their next mammogram. Electronically signed by: Pina Pearce MD 07/02/2024 03:32 PM EDT Dictated By: Pina Pearce MD Signed By: <Electronically signed by Pina Pearce MD in OV> 07/02/24 1532 DD/ 1055 TD/TT: 06/03/24 1110 Mainframe Systems Engineer: Fani Goodrich MD IMG BI PROCEDURES Edited Result - Final from Last 3 Months or Most Recently Relevant to Health Maintenance [place] [address] [place] [address] STANDARD MEDICARE DENTAL-[facility] MEDICAID STAND ADULT Care Teams Foreign Student Adviser Relationship Specialty Start Date End Date Fani Goodrich MD [address] [place] [phone] PCP - General Family Medicine 09/30/12
--- OUTSIDE RECORDS SUMMARY | 2024-12-21 00:36 | XMS_ITS | Encounter Summary ---
Author Organization [employer] Address [address] [facility] [address] [place] [address] Care Team Providers Care Insurance Agent Name Role Phone Fani Goodrich MD Primary Care Provider [phone] Reason for Visit * Reason Onset Date Comments PT-1 Submitted 12/01/2024 Encounter Details Date Type Department Care Team ([facility] st Contact Info) Description 12/01/2024 Telephone [facility] MEDICINE [address] [place], [place] [phone] Fani Goodrich MD [address] [place], [place] [phone] PT-1 Submitted Social History Tobacco Use Types Packs/Day Years Used Date Smoking Tobacco: Never Passive Smoke Exposure: Never Smokeless Tobacco: Never Depression Answer Date Recorded Patient Health Questionnaire-9 [...] not to disclose 2021 10:14 AM EDT documented as of this encounter Miscellaneous Notes * Telephone Encounter - More [place]zon - 12/01/2024 10:51 AM EST PT-1 submitted for patient. They will receive a letter of approval or denial in the mail. * Telephone Encounter - More [place] - 12/01/2024 10:50 AM EST ----- Message from Fani Goodrich MD sent at 10/30/2024 10:12 AM EST ----- Please submit PT-1. She needs to go to see PCP, [facility] Eye care, and insurance claims assistant. Thank you documented in this encounter Plan of Treatment Upcoming Encounters Date Type Department Care Team (Late st Contact Info) Description 01/11/2025 2:00 PM EDT Office Visit [facility] ADULT DENTAL [address] [place] [address] Lianne, Gricel [address] [place] [address] 02/21/2025 2:15 PM EDT Office Visit [facility] MEDICINE [address] [place] [address] Fani Goodrich MD [address] [place] [address] 03/16/2025 2:30 PM EDT Office Visit [facility] OPTOMETRY [address] [place], [place] [phone] Esequiel, Aleshia, OD [address] [place], [place] [phone] documented as of this encounter Visit Diagnoses Not on filedocumented in this encounter Additional Health Concerns Assessment Noted Time PHQ-9 Depression Total Score: 0 07/05/20 24 1:30 PM EDT documented as of this encounter Care Teams Insurance Agent Relationship Specialty Start Date End Date Fani Goodrich MD [address] [place] [address] PCP - General Family Medicine 09/30/12 documented as of this encounter
--- OUTSIDE RECORDS SUMMARY | 2024-12-21 00:36 | XMS_ITS | Clinical Summary ---
Author Organization [facility], Address [address] [place] [address] [place] [address] Phone Care Team Providers Care Interventional Radiology Technologist Name Role Phone Fani Goodrich MD Primary Care Provider [phone] Allergies Active Allergy Reactions Criticality Noted Date Comments Aspirin 01/25/2021 Fenofibrate 01/25/2021 Fish Oil 01/25/2021 Niacin Itching Medium 01/25/2021 Nsaids 01/25/2021 Medications hydrOXYzine (ATARAX) 25 MG tablet Take 1 tablet by mouth 3 (three) times a day 8 Active acetaminophen (TYLENOL) 500 MG tablet Take by mouth every 6 (six) hours if needed for mild pain Active lisinopril (PRINIVIL,ZESTRI L) 30 MG tablet Take 30 mg by mouth 1 (one) time each day Active pravastatin (PRAVACHOL) 40 MG tablet Take 40 mg by mouth 1 (one) time each day Active Blood Pressure Monitoring (Blood Pressure Kit) device 1 Device 1 (one) time each day To check BP at home. 1 each 1 Active ALPRAZolam (XANAX) 0.5 MG tablet TAKE 1/2 TABLET BY MOUTH AT BEDTIME NEEDED FOR SLEEP 2 Active cholecalciferol (VITAMIN D-3) 50 MCG (1999 UT) tablet TAKE 1 BY ORAL ROUTE EVERY DAY 2 Active gabapentin (NEURONTIN) 300 MG capsule TAKE 1 CAPSULE BY ORAL ROUTE AT BEDTIME, MAY TAKE 1 ADDITIONAL TABLET DURING THE DAY 2 Active glipiZIDE (GLUCOTROL XL) 2.5 MG 24 hr tablet TAKE 1 TABLET BY MOUTH WITH DINNER 2 Active ondansetron ODT (ZOFRAN-ODT) 4 MG dispersible tablet TAKE 1 TABLET BY MOUTH EVERY SIX HOURS 2 Active tiZANidine (ZANAFLEX) 2 MG tablet 2 Active carvedilol (COREG) 25 MG tablet Take (half tablet) 12.5 mg in AM and full tablet 25 mg daily at night. 45 tablet 5 2 Active ezetimibe (ZETIA) 10 MG tablet Take 1 tablet (10 mg total) by mouth 1 (one) time each day 90 tablet 2 4 Active chlorthalidone 25 MG tablet TAKE 1/2 OF A TABLET BY MOUTH EVERY DAY. 90 tablet 3 4 Active Active Problems Problem Noted Date Diagnosed Date Essential (primary) hypertension 01/31/2021 Stage 3b chronic kidney disease 01/24/2020 Overview (10/22/2020): Update for Diagnosis Load Type 2 diabetes mellitus 01/24/2020 Resolved Problems Problem Noted Date Diagnosed Date Resolved Date Vitamin D deficiency, not otherwise specified 02/01/20 21 08/12/2021 Chronic kidney disease, stage 2 (mild) 01/30/2020 01/25/2021 Renal disorder due to type 2 diabetes mellitus 01/30/2020 08/12/2021 Blood in urine 01/24/2020 08/12/2021 Hyperlipidemia 01/24/2020 08/12/2021 Hypokalemia 01/24/2020 08/12/2021 Immunizations Name Administration Dates Next Due Zoster 05/03/2020,10/17/2019 Family History Relation Status Comments Father Unknown Mother Unknown Social History Tobacco Use Types Packs/Day Years Used Date Smoking Tobacco: Never Alcohol Use Standard Drinks/Week Comments No 0 (1 standard drink = 0.6 oz pur e alcohol) Comments Unknown Sex and Gender Information Value Date Recorded Sex Assigned at Not on file Legal Sex Female 4:30 PM EST Gender Identity Not on file Sexual Orientation Not on file Last Filed Vital Signs Vital Sign Reading Time Taken Comments Blood Pressure 118/76 02/10/2022 4:01 PM EDT Pulse 68 03/28/2019 12:00 PM EDT Temperature - - Respiratory Rate 16 03/28/2019 12:00 PM EDT Oxygen Saturation - - Inhaled Oxygen Concentration - - Weight 60.5 kg (133 lb 6.4 oz) 02/10/2022 4:01 P M EDT Height 152.4 cm (5') 02/10/2022 4:01 PM EDT Body Mass Index 26.05 02/10/2022 4:01 PM EDT Plan of Treatment Health Maintenance Due Date Last Done Comments Breast Cancer Screening 1950 Pneumococcal Vaccine: 65+ Years (1 of 2 - PCV) 1957 Colorectal Cancer Screening: Annual FOBT 01/07/2000 Colorectal Cancer Screening: Colonoscopy 01/07/2000 Colorectal Cancer Screening: Sigmoidoscopy 01/07/2000 Diabetes: Ophthalmology Exam 01/09/2020 Diabetes: Pedal Pulse Checked 01/09/2020 Diabetes: Sensory Foot Exam 01/09/2020 Diabetes: Visual Foot Exam 01/09/2020 Diabetes: Hemoglobin A1C 01/13/2023 022, 02/10/2018 Influenza Vaccine (#1) 2024 Hepatitis B Vaccine Aged Out No longe r eligible based on patient's age to complete this topic Procedures Procedure Name Priority Date/Time Associated Diagnosis Comments LAB REINFORCING STEEL ERECTOR Routine 02/10/2018 12:00 AM EDT from Last 3 Months or Most Recently Relevant to Health Maintenance Results * (ABNORMAL) Lab Alarm Security Or Surveillance Monitor (02/10/2018 12:00 AM EDT) Sodium 139 133 - 145 mmol/L [facility] Creatinine 1.13(H) 0.4 - 1.1 mg/dL [facility] GFR Calculated 48 ml/min [facility] Calcium 10.3(H) 8.4 - 10.2 mg/dL [facility] Cholesterol, Total 173 mg/dl [facility] Triglycerides 323 mg/dl [facility] LDL-Calc 70 mg/dl [facility] Carbon Dioxide (CO2) 27 22 - 29 mmol/L [facility] Vitamin D, 25-OH, Total 10.5 ng/ml [facility] Potassium 3.6 3.6 - 5.2 mmol/L [facility] BUN 18 8 - 23 mg/dL [facility] Phosphorus, Serum 3.9 2.5 - 4.5 mg/dL [facility] HDL 39 mg/dl [facility] Hemoglobin A1C 5.9 % [facility] 02/10/2018 [facility] Conversion LAB [id number] LICITED RESULTS Final Result AMY from Last 3 Months or Most Recently Relevant to Health Maintenance Insurance MEDICAID [place] MEDICARE Care Teams Interventional Radiology Technologist Relationship Specialty Start Date End Date Fani Goodrich MD PCP - General 08/23/19
--- OUTSIDE RECORDS SUMMARY | 2024-12-21 00:36 | XMS_ITS | Encounter Summary ---
Author Organization [employer] [facility] Address [address] [facility] [address] [place] [address] Care Team Providers Care Glass Calibrator Name Role Phone Fani Goodrich MD Primary Care Provider [phone] Encounter Details Date Type Department Care Team (Late st Contact Info) Description 09/23/[address] [facility] MEDICINE [address] [place] [address] Gissel Harry RN Social History Tobacco Use Types Packs/Day Years Used Date Smoking Tobacco: Never Assessed Comments Unknown Sex and Gender Information Value Date Recorded Sex Assigned at Female 08/18/2022 10:14 AM EDT Legal Sex Female 10:14 AM EDT Gender Identity Female 08/18/2022 10:14 AM EDT Sexual Orientation Choose not to disclose 2021 10:14 AM EDT documented as of this encounter Plan of Treatment Upcoming Encounters Date Type Department Care Team (Late st Contact Info) Description 01/11/2025 2:00 PM EDT Office Visit [facility] ADULT DENTAL [address] [place] [address] Gricel Abdalla [address] [place] [address] 02/21/2025 2:15 PM EDT Office Visit [facility] MEDICINE [address] [place] [address] Fani Goodrich MD [address] [place] [address] 03/16/2025 2:30 PM EDT Office Visit [facility] OPTOMETRY [address] [place] [address] Aleshia Iraheta, OD [address] [place] [address] documented as of this encounter Visit Diagnoses Not on filedocumented in this encounter Care Teams Glass Calibrator Relationship Specialty Start Date End Date Fani Goodrich MD [address] [place] [address] PCP - General Family Medicine 09/30/12 documented as of this encounter
--- OUTSIDE RECORDS SUMMARY | 2024-12-21 00:36 | XMS_ITS | Encounter Summary ---
Author Organization [facility], Address [address] [place] [address] Phone Care Team Providers Care Integration Aide Name Role Phone Fani Goodrich MD Primary Care Provider [phone] Encounter Details Date Type Department Care Team (Late st Contact Info) Description 10/29/2022 Documentation Only [facility], [address] [place] [address] Pantera James MD [address] [place] [address] Social History Tobacco Use Types Packs/Day Years Used Date Smoking Tobacco: Never Alcohol Use Standard Drinks/Week Comments No 0 (1 standard drink = 0.6 oz pur e alcohol) Comments Unknown Sex and Gender Information Value Date Recorded Sex Assigned at Not on file Legal Sex Female 4:30 PM EST Gender Identity Not on file Sexual Orientation Not on file documented as of this encounter Plan of Treatment Not on file documented as of this encounter Visit Diagnoses Not on filedocumented in this encounter Care Teams Integration Aide Relationship Specialty Start Date End Date Fani Goodrich MD PCP - General 08/23/19 documented as of this encounter
--- OUTSIDE RECORDS SUMMARY | 2024-12-21 00:36 | XMS_ITS | Encounter Summary ---
Author Organization [facility], Address [address] [place] [address] Phone Care Team Providers Care Phlebotomy Services Representative Name Role Phone Fani Goodrich MD Primary Care Provider [phone] Reason for Visit * Reason Comments Med Refill Encounter Details Date Type Department Care Team (Late st Contact Info) Description 02/27/2021 Refill [facility] [address] [place] [address] Pantera James MD [address] [place] [address] [place] [address] Social History Tobacco Use Types [...] on filedocumented in this encounter Care Teams Phlebotomy Services Representative Relationship Specialty Start Date End Date Fani Goodrich MD PCP - General 08/23/19 documented as of this encounter
--- OUTSIDE RECORDS SUMMARY | 2024-12-21 00:36 | XMS_ITS | Encounter Summary ---
Author Organization [employer] Address [address] [facility] 7t [place] [address] Care Team Providers Care Lacquer Coater Name Role Phone Fani Goodrich MD Primary Care Provider [phone] Encounter Details Date Type Department Care Team (Late st Contact Info) Description 09/03/2023 Orders Only [facility] MEDICINE [address] [place], [place] [phone] Fani Goodrich MD [address] [place] [address] Type 2 diabetes mellitus with stage 3a chronic kidney disease, without long-term current use of insulin ([facility]) Social History Tobacco Use Types Packs/Day Years Used Date Smoking Tobacco: Never Passive Smoke Exposure: Never Smokeless Tobacco: Never Depression Answer Date Recorded Patient Health Questionnaire-9 Score 0 10/15/2022 Housing Stability Answer Date Recorded What is your housing situation today? I have roya mckeon 08/05/[address] you li ve. Do you have problems with any of the following? None of the above 08/05/2023 Food Insecurity Answer Date Recorded Within the past 12 months, y ou worried that your food would run out before you got money to buy more: Never True 08/05/2023 Within the past 12 months,th e food you bought just didn't last and you didn't have enough money to get more: Never True Transportation Answer Date Recorded In the past 12 months, has l ack of transportation kept you from medical appts, meetings, work or from getting things needed for daily living? No 08/05/2023 Utilities Answer Date Recorded In the past 12 months, has t he electric, gas, oil or water company threatened to shut off services in your home? No 08/05/2023 Depression Answer Date Recorded Patient Health Questionnaire-2 Score 0 10/15/2022 Comments Unknown Sex and Gender Information Value [...] Description 01/11/2025 2:00 PM EDT Office Visit [facility] ADULT DENTAL [address] [place] [address] Lianne, Gricel [address] [place] [address] 02/21/2025 2:15 PM EDT Office Visit [facility] MEDICINE [address] [place] [address] Fani Goodrich MD [address] [place] [address] 03/16/2025 2:30 PM EDT Office Visit [facility] OPTOMETRY [address] [place] [address] Aleshia Iraheta, OD [address] [place] [address] documented as of this encounter Procedures Procedure Name Priority Date/Time Associated Diagnosis Comments DIRECT LDL Routine 09/03/2023 2:41 PM EST Type 2 diabetes mellitus with stage 3a chronic kidney disease, without long-term current use of insulin ([facility]) documented in this encounter Results * (ABNORMAL) Direct LDL (09/03/2023 2:41 PM EST) LDL Direct 122(H) <100 mg/dL [facility] Comment:Greatly elevated Tri glycerides values (>1200 mg/dL)interfere with the dLDL assay. As no Triglyceridestesting was ordered, interpret results with caution.Desirable range <100 mg/dL for primary prevention;<70 mg/dL for patients with CHD or diabetic patientswith > or = 2 CHD risk factors.THIS TEST WAS PERFORMED AT:[email or web address] [place] [id number] PHILLIPS MD 09/03/2023 2:41 PM EST 09/03/2023 2:41 PM EST us Fani Goodrich MD LAB BLOOD ORDERABLES Final Resul t [facility] [address] [place] [address] [phone] documented in this encounter Visit Diagnoses Diagnosis Type 2 diabetes mellitus with stage 3a chronic kidney disease, without long-term current use of insulin ([facility]) documented in this encounter Additional Health Concerns Assessment Noted Time PHQ-9 Depression Total Score: 0 10/15/20 22 9:17 AM EST documented as of this encounter Care Teams Lacquer Coater Relationship Specialty Start Date End Date Fani Goodrich MD [address] [place] [address] PCP - General Family Medicine 09/30/12 documented as of this encounter
--- OUTSIDE RECORDS SUMMARY | 2024-12-21 00:36 | XMS_ITS | Encounter Summary ---
Author Organization [facility], Address [address] [place] [address] Phone Care Team Providers Care Elementary Classroom Teacher Name Role Phone Fani Goodrich MD Primary Care Provider [phone] Encounter Details Date Type Department Care Team (Late st Contact Info) Description 05/12/2022 Documentation Only [facility], [address] [place] [address] Pantera James MD [address] [place] [address] Social History Tobacco Use Types [...] on filedocumented in this encounter Care Teams Elementary Classroom Teacher Relationship Specialty Start Date End Date Fani Goodrich MD PCP - General 08/23/19 documented as of this encounter
--- OUTSIDE RECORDS SUMMARY | 2024-12-21 00:36 | XMS_ITS | Encounter Summary ---
Author Organization [facility], Address [address] [place] [address] Phone Care Team Providers Care Shoe Designer Name Role Phone Fani Goodrich MD Primary Care Provider [phone] Encounter Details Date Type Department Care Team (Late st Contact Info) Description 05/12/2022 Documentation Only [facility], [address] [place] [address] Pantera James MD [address] [place] [address] Social History Tobacco Use Types [...] on filedocumented in this encounter Care Teams Shoe Designer Relationship Specialty Start Date End Date Fani Goodrich MD PCP - General 08/23/19 documented as of this encounter
--- OUTSIDE RECORDS SUMMARY | 2024-12-21 00:36 | XMS_ITS | Clinical Summary ---
Author Organization [employer] [facility] Address [address] [place] [address] Care Team Providers Care Clerical Adjuster Name Role Phone Unavailable Primary Care Provider Unavailabl e Social History Tobacco Use Types Packs/Day Years Used Date Smoking Tobacco: Never Assessed Comments Unknown Sex and Gender Information Value Date Recorded Sex Assigned at Not on file Legal Sex Female 8:50 PM EST Gender Identity Not on file Sexual Orientation Not on file Plan of Treatment Health Maintenance Due Date Last Done Comments Breast Cancer Screening 1950 Pneumococcal Vaccine: 50+ Ye ars (1 of 1 - PCV) 2001 Zoster Vaccines (1 of 2) 2001 Colorectal Cancer Screening: Colonoscopy 11/13/2023 Depression Screening 11/13/2023 Falls Risk Assessment 11/13/2023 Hepatitis C Screening 11/13/2023 Osteoporosis Screening (Bone Density Screening) 11/13/2023 Social Influencers of Health Screening 11/13/2023 COVID-19 Vaccine (2023-2 5 season) 2024 Influenza Vaccine (#1) 2024 RSV Immunization Patients 60 + Years Old (1 - 1-dose 75+ series) 2026 DTaP,Tdap,and Td Vaccines (2 - Td or Tdap) 08/30/2032 08/30/2022 HIB Vaccines Aged Out No longer eligi ble based on patient's age to complete this topic HPV Vaccines Aged Out No longer eligi ble based on patient's age to complete this topic Hepatitis A Vaccines Aged Out No long er eligible based on patient's age to complete this topic Hepatitis B Vaccines Aged Out No long er eligible based on patient's age to complete this topic IPV Vaccines Aged Out No longer eligi ble based on patient's age to complete this topic MMR Vaccines Aged Out No longer eligi ble based on patient's age to complete this topic Meningococcal ACWY Vaccine Aged Out N o longer eligible based on patient's age to complete this topic Meningococcal B Vacine Aged Out No lo nger eligible based on patient's age to complete this topic RSV Immunization Patients Un alex 20 months Aged Out No longer eligible b ased on patient's age to complete this topic Varicella Vaccines Aged Out No longer eligible based on patient's age to complete this topic
--- OUTSIDE RECORDS SUMMARY | 2024-12-21 00:36 | XMS_ITS | Encounter Summary ---
Author Organization [facility], Address [address] [place] [address] Phone Care Team Providers Care Corporate Staff Accountant Name Role Phone Fani Goodrich MD Primary Care Provider [phone] Reason for Visit * Reason Comments Med Refill Encounter Details Date Type Department Care Team (Late st Contact Info) Description 08/06/2021 Refill [facility] [address] [place] [address] Pantera James MD [address] [place] [address] [place] [address] Social History Tobacco Use Types [...] on filedocumented in this encounter Care Teams Corporate Staff Accountant Relationship Specialty Start Date End Date Fani Goodrich MD PCP - General 08/23/19 documented as of this encounter
--- OUTSIDE RECORDS SUMMARY | 2024-12-21 00:36 | XMS_ITS | Encounter Summary ---
Author Organization [employer] Address [address] [facility] 7t [place] [address] Care Team Providers Care Area Field Worker Name Role Phone Fani Goodrich MD Primary Care Provider [phone] Reason for Referral * Imaging (Routine) - Closed Specialty Diagnoses / Procedures Referred By Contac t Referred To Contact Radiology Diagnoses Breast cancer screening by mammogram Procedures BI Mammogram Screening Tomosynthesis Bilateral Fani Goodrich MD [address] [place] [address] Phone: tel: fax: [address] Phone: tel: fax: Referral ID Status Reason Start Date Expiration Date Visits Re quested Visits Authorized [id number] Closed 05/30/2024 05/30/2025 1 1 Encounter Details Date Type Department Care Team (Late st Contact Info) Description 05/30/2024 Orders Only [facility]INE [address] [place] [phone] Fani Goodrich MD [address] [place] [address] Breast cancer screening by mammogram (Primary Dx) Social History Tobacco Use Types Packs/Day Years [...] Description 01/11/2025 2:00 PM EDT Office Visit [facility] ADULT DENTAL [address] [place] [address] Lianne Gricel [address] [place] [address] 02/21/2025 2:15 PM EDT Office Visit [facility] MEDICINE [address] [place] [address] Fani Goodrich MD [address] [place] [address] 03/16/2025 2:30 PM EDT Office Visit [facility] OPTOMETRY [address] [place] [address] Aleshia Iraheta, OD [address] [place] [address] documented as of this encounter Procedures Procedure Name Priority Date/Time Associated Diagnosis Comments BI MAMMOGRAM SCREENING TOMOSYNTHESIS BILATERAL Routine 06/03/2024 10:55 AM EDT Breast cancer screening by mammogram documented in this encounter Results * BI Mammogram Screening Tomosynthesis Bilateral (06/03/2024 10:55 AM EDT) Anatomical Region Laterality Modality Breast Bilateral Mammography 06/03/2024 10:5 5 AM EDT Narrative 07/02/2024 3:35 PM EDT ? [facility] ? [address] [facility] [address] ?[place] [address] ? Mammography Report ? Signed ? Patient: Natalie Mccloud ?MR#: [id number] ?? [id number] ? : 1950 ?Acct:[id number] ? Age/Sex: 74 / F ?ADM Date: 06/03/24 ? Loc: HO.MAMMO ? Attending Dr: Fani Goodrich MD ? Ordering Physician: Fani Goodrich MD ?Results: 1Negative ? Date of Service: 06/03/24 ?Follow Up: 1 Year From Orig ?? inal Mammogram ? Procedure(s): MM tomosynthesis screening BI ?? Accession Number(s): [id number] ? cc: Fani Goodrich MD ? EXAMINATION: [...] DD/ 1055 ? TD/TT: 06/03/24 1110 ? Detention Attendant: ? Procedure Note [place], Image - 07/02/2024 [facility] [address] [place] [address] Dr. [place], [place] [address] Mammography Report Signed Patient: Holli Mccloud#: [id number] : 1Acct:[id number] Age/Sex: 74 / FADM Date: 06/03/24 Loc: [facility]A Attending Dr: Fani Goodrich MD Ordering Physician: Fani Goodrichesults: 1Negative Date of Service: 06/03/24Follow Up: 1 Year From Orig ina Mammogram Procedure(s): MM tomosynthesis screening BI Accession Number(s): [id number] cc: Fani Goodrich MD EXAMINATION: MM SCREENING [...] Pina Pearce MD 07/02/2024 03:32 PM EDT RP Dictated By: Pina Pearce MD Signed By: <Electronically signed by Pina Pearce MD in OV> 07/02/24 1532 DD/ 1055 TD/TT: 06/03/24 1110 Detention Attendant: Fani Goodrich MD IM BI PROCEDURES Edited Result - Final documented in this encounter Visit Diagnoses Diagnosis Breast cancer screening by mammogram- Primary documented in this encounter Additional Health Concerns Assessment Noted Time PHQ-9 Depression Total Score: 0 10/15/20 22 9:17 AM EST documented as of this encounter Care Teams Area Field Worker Relationship Specialty Start Date End Date Fani Goodrich MD [address] [place] [address] PCP - General Family Medicine 09/30/12 documented as of this encounter
--- OUTSIDE RECORDS SUMMARY | 2024-12-21 00:36 | XMS_ITS | Encounter Summary ---
Author Organization [facility], Address [address] [place] [address] Phone Care Team Providers Care Parks Recreation Coordinator Name Role Phone Fani Goodrich MD Primary Care Provider [phone] Reason for Visit * Reason Comments Med Refill Encounter Details Date Type Department Care Team (Late st Contact Info) Description 04/01/2022 Refill [facility] [address] [place] [address] Pantera James MD [address] [place] [address] [place] [address] Social History Tobacco Use Types [...] on filedocumented in this encounter Care Teams Parks Recreation Coordinator Relationship Specialty Start Date End Date Fani Goodrich MD PCP - General 08/23/19 documented as of this encounter
[2024-12-21] MEDS: Ondansetron ODT 4 MG TAB.RAPDIS TRANSLINGU (01:19)
[2024-12-21 01:27] VITALS: BP 136/88; PULSE 92; RESP 18; TEMP 37.2; O2SAT 96
== END 2024-12-21 01:28 | disposition home or self-care (01) ==
PROVIDERS: Emergency Provider Emergency Medicine Emergency Medical Services; PCP Family Medicine
DX: J10.1 Influenza due to other identified influenza virus with other respiratory manifestations (principal); I12.9 Hypertensive chronic kidney disease with stage 1 through stage 4 chronic kidney disease, or unspecified chronic kidney disease; E11.22 Type 2 diabetes mellitus with diabetic chronic kidney disease; N18.9 Chronic kidney disease, unspecified
CPT/HCPCS: 0241U; 71045; 80053; 85025; 99282; 99283

== ENCOUNTER → 2024-12-20 20:36 | Outpatient (BNV) | payer MEDICARE, MEDICAID, SELFPAY | PROVIDERS: Visit Provider Radiology Diagnostic Radiology | DX: R05.9 Cough, unspecified (principal) | CPT/HCPCS: 71045 ==

== ENCOUNTER 2025-06-06 15:15 | Outpatient (REF) | payer MEDICARE, MEDICAID, SELFPAY ==
[2025-06-06 16:17] LABS: Appearance Urine Clear; Glucose Urine UA Negative (Negative); PH 6.0 (5.0-9.0); Specific Gravity - Urine 1.015 (1.005-1.025); UMIC TRIGGER UA YES
--- OUTSIDE RECORDS SUMMARY | 2025-06-06 16:31 | XMS_ITS | Encounter Summary ---
Author Organization [facility], Address [address] [place] [address] Phone Care Team Providers Care Mobile Engineer Name Role Phone Fani Goodrich MD Primary Care Provider [phone] Reason for Visit * Reason Comments Med Refill Encounter Details Date Type Department Care Team (Late Contact Info) Description 02/27/2021 Refill [facility] [place] [address] [place] [address] Pantera James MD [address] [place] [address] [place] [address] Social History Tobacco Use Types [...] Encounters Date Type Department Care Team (Late Contact Info) Description 12/05/2025 3:30 PM EST Office Visit [facility], [address] [facility] [address] Pantera James MD [address] [facility] [address] [place] [address] documented as of this encounter Visit Diagnoses Not on filedocumented in this encounter Care Teams Mobile Engineer Relationship Specialty Start Date End Date Fani Goodrich MD PCP - General 08/23/19 documented as of this encounter
--- OUTSIDE RECORDS SUMMARY | 2025-06-06 16:31 | XMS_ITS | Clinical Summary ---
Author Organization [employer] [facility] Address [address] [place] [address] Care Team Providers Care Dial Refinisher Name Role Phone Unavailable Primary Care Provider [...] 2) 2001 Colorectal Cancer Screening: Colonoscopy 11/13/2023 Falls Risk Assessment 11/13/2023 Hepatitis C Screening 11/13/2023 Osteoporosis Screening (Bone Density Screening) 11/13/2023 Social Influencers of Health Screening 11/13/2023 COVID-19 Vaccine ( - 2023-2 5 season) 2024 Depression Screening 10/19/2024 Influenza Vaccine (#1) 2025 RSV Immunization Adult Patie nts (1 - 1-dose 75+ series) 2026 DTaP,Tdap,and [...] age to complete this topic Meningococcal B Vaccine Aged Out No l onger eligible based on patient's age to complete this topic RSV Immunization Patients Un alex 20 months Aged Out No longer eligible b ased on patient's age to complete this topic Varicella Vaccines Aged Out No longer eligible based on patient's age to complete this topic
--- OUTSIDE RECORDS SUMMARY | 2025-06-06 16:31 | XMS_ITS | Encounter Summary ---
Author Organization [employer] Address [address] [facility] 7t [place] [address] Care Team Providers Care Hotel Associate Name Role Phone Fani Goodrich MD Primary Care Provider Reason for Visit * Reason Onset Date Comments Error (VOID this visit) 09/23/2022 Encounter Details Date Type Department Care Team (Late st Contact Info) Description 09/23/2022 Telephone [facility] MEDICINE [address] [place] [address] Gissel Harry RN Error (VOID this visit) Social History Tobacco Use Types Packs/Day Years Used Date Smoking Tobacco: Never Assessed Depression Answer Date Recorded Patient Health Questionnaire-9 Score 0 07/05/2024 Patient Health Questionnaire-9 Score 0 07/05/2024 Last PHQ-9: Questionnaire Data Not on file 0 07/05/2024 Housing Stability Answer Date Recorded What is your housing situation today? I have roya mckeon 06/06/[address] you li ve. Do you have problems with any of the following? None of the above 06/06/2025 Food Insecurity Answer Date Recorded Within the past 12 months, y ou worried that your food would run out before you got money to buy more: Never True 06/06/2025 Within the past 12 months,th e food you bought just didn't last and you didn't have enough money to get more: Never True Transportation Answer Date Recorded In the past 12 months, has l ack of transportation kept you from medical appts, meetings, work or from getting things needed for daily living? No 06/06/2025 Utilities Answer Date Recorded In the past 12 months, has t he electric, gas, oil or water company threatened to shut off services in your home? No 06/06/2025 Depression Answer Date Recorded Patient Health Questionnaire-2 Score 0 07/05/2024 Internet Access Answer Date Recorded Internet Access Q1 No 06/06/2025 Internet Access Q2 I do not want or need it 05/19 Comments Unknown Sex and Gender Information Value Date Recorded Sex Assigned at Female 08/18/2022 10:14 AM EDT Legal Sex Female 10:14 AM EDT Gender Identity Female 08/18/2022 10:14 AM EDT Sexual Orientation Choose not to disclose 2021 10:14 AM EDT COVID-19 Exposure Response Date Recorded In the last 10 days, have yo u been in contact with someone who was confirmed or suspected to have Coronavirus/COVID-19? No / Unsure 01/26/2023 11:05 AM EDT documented as of this encounter Functional Status * Over the past 2 weeks, how often have you been bothered by any of the following problems? Question Answer Date of Assessment Author Patient Health Questionnaire-2 Score 0 06/19 1:30 PM ALICIAT Katherine Turcios MA * Over the past 2 weeks, how often have you been bothered by any of the following problems? Question Answer Date of Assessment Author Little interest or pleasure in doing things Not at all 07/05/2024 1:30 PM ALICIAT Katherine Turcios MA Feeling down, depressed, or hopeless Not at all 07/05/2024 1:30 PM ALICIAT Katherine Turcios MA Trouble falling or staying asleep, or sleeping too much Not at all 07/05/2024 1:30 PM EDT Rey Turcios MA Feeling tired or having cuco le energy Not at all 07/05/2024 1:30 PM ALICIAT Katherine Turcios MA Poor appetite or overeating Not at all 07/05/2024 1: 30 PM ALICIAT Katherine Turcios MA Feeling bad about yourself - or that you are a failure or have let yourself or your family down Not at all 07/05/2024 1:30 PM EDT Katherine Mayers MA Trouble concentrating on thi ngs, such as reading the newspaper or watching television Not at all 07/05/2024 1:30 PM ALICIAT Katherine Turcios MA Moving or speaking so slowly that other people could have noticed? Or the opposite - being so fidgety or restless that you have been moving around a lot more than usual. Not at all 07/05/2024 1:30 PM EDT Katherine Turcios MA Thoughts that you would be b narcisa off or hurting yourself in some way Not at all 07/05/2024 1:30 PM EDT Katherine Turcios MA Patient Health Questionnaire -9 Score 0 07/05/2024 1:30 PM EDT Katherine Turcios MA documented as of this encounter Plan of Treatment Upcoming Encounters Date Type Department Care Team (Late st Contact Info) Description 07/04/2025 10:00 AM EDT Office Visit [facility] MEDICINE [address] [place] [address] Nia Hills MD [address] [place] [address] 08/28/2025 11:00 AM EST Office Visit [facility] ADULT DENTAL [address] [place] [address] Lianne, Gricel [address] [place] [address] 09/18/2025 1:00 PM EST Office Visit [facility] OPTOMETRY [address] [place] [address] Esequiel, Aleshia, OD [address] [place] [address] documented as of this encounter Visit Diagnoses Not on filedocumented in this encounter Care Teams Hotel Associate Relationship Specialty Start Date End Date Fani Goodrich MD [address] [place] [address] PCP - General Family Medicine 09/30/12 documented as of this encounter
[2025-06-06 16:51] LABS: Anion Gap 13 (12-20); Blood Urea Nitrogen 25 mg/dL (9-16); Calcium 10.0 mg/dL (8.4-10.2); Carbon Dioxide 27 mmol/L (22-29); Chloride 103 mmol/L (96-108); Estimated Glomerular Filt Rate 35; Potassium 3.8 mmol/L (3.3-5.1); Sodium 139 mmol/L (135-145)
[2025-06-10 15:04] LABS: VITAMIN D (1,25 OH) D3 49 pg/mL; Vit D (1,25-Dihydroxy) Total 49 pg/mL (18-72); Vitamin D (1,25 OH) D2 <8 pg/mL
== END 2025-06-06 15:16 | disposition home or self-care (01) ==
LOC: HO.HHCL 15:15
PROVIDERS: PCP Family Medicine; Referring Provider Internal Medicine Nephrology; Visit Provider Family Medicine
DX: I12.9 Hypertensive chronic kidney disease with stage 1 through stage 4 chronic kidney disease, or unspecified chronic kidney disease (principal); E11.22 Type 2 diabetes mellitus with diabetic chronic kidney disease; N18.32 Chronic kidney disease, stage 3b
CPT/HCPCS: 36415; 80051; 81001; 82310; 82565; 82652; 82784; 84520; 86334; 88112

== ENCOUNTER 2025-06-09 10:55 | Outpatient (REF) | payer MEDICARE, MEDICAID, SELFPAY ==
--- NOTE | ~2025-06-09 | MM_ITS ---
EXAMINATION: MM SCREENING DIGITAL BREAST TOMOSYNTHESIS, BILATERAL CLINICAL INFORMATION: Screening. Asymptomatic. COMPARISON: Mammography: Comparison is made with available priors TECHNIQUE: Digital breast mammography with tomosynthesis is performed in both the craniocaudal and mediolateral oblique views along with computer-aided detection (CAD). FINDINGS: There are scattered areas of fibroglandular density (ACR BI-RADS breast composition Category b). There are no significant masses, abnormal calcifications, or other abnormalities. MM/MM tomosynthesis screening BI IMPRESSION: No mammographic evidence of malignancy. ASSESSMENT: BI-RADS BI-RADS 1 - Negative RECOMMENDATION: Routine annual mammography screening. 1 year F/U This examination should not preclude the clinical evaluation of a suspicious palpable abnormality. This patient's information was entered into a reminder system with a target due date for their next mammogram. Electronically signed by: Laura Morales DO 06/13/2025 12:30 PM EDT
--- OUTSIDE RECORDS SUMMARY | 2025-06-09 11:00 | XMS_ITS | Encounter Summary ---
Author Organization [employer] Address [address] [facility] 7t [place] [address] Care Team Providers Care Customer Marketing Assistant Name Role Phone Fani Goodrich MD Primary Care Provider [phone] Reason for Visit * Reason Onset Date Comments Error (VOID this visit) 09/23/2022 Encounter Details Date Type Department Care Team (Late st Contact Info) Description 09/23/2022 Telephone [facility] MEDICINE [address] [place] [address] Gissel Harry RN Error (VOID this visit) [...] Description 07/04/2025 10:00 AM EDT Office Visit [facility] MEDICINE [address] [place] [address] Nia Hills MD [address] [place] [address] 08/28/2025 11:00 AM EST Office Visit [facility] ADULT DENTAL [address] [place] [address] Lianne, Gricel [address] [place] [address] 09/18/2025 1:00 PM EST Office Visit [facility] OPTOMETRY [address] [place] [address] Esequiel, Aleshia, OD [address] [place] [address] documented as of this encounter Visit Diagnoses Not on filedocumented in this encounter Care Teams Customer Marketing Assistant Relationship Specialty Start Date End Date Fani Goodrich MD [address] [place] [address] PCP - General Family Medicine 09/30/12 documented as of this encounter
--- OUTSIDE RECORDS SUMMARY | 2025-06-09 11:00 | XMS_ITS | Encounter Summary ---
Author Organization [facility], Address [address] [place] [address] Phone Care Team Providers Care Anatomy Professor Name Role Phone Fani Goodrich MD Primary Care Provider [phone] Reason for Visit * Reason Comments Med Refill Encounter Details Date Type Department Care Team (Late Contact Info) Description 02/27/2021 Refill [facility] [address] [place] [address] Pantera James MD [address] [place] [address] [place] [address] Social History Tobacco Use Types [...] Visit [facility], [address] [facility] [address] [place] [address] Pantera James MD [address] [facility] [place] [address] documented as of this encounter Visit Diagnoses Not on filedocumented in this encounter Care Teams Anatomy Professor Relationship Specialty Start Date End Date Fani Goodrich MD PCP - General 08/23/19 documented as of this encounter
--- OUTSIDE RECORDS SUMMARY | 2025-06-09 11:00 | XMS_ITS | Clinical Summary ---
Author Organization [facility] ity Address [address] [place] [address] Care Team Providers Care Verification Rep Name Role Phone Unavailable Primary Care Provider [...]
== END 2025-06-09 10:56 | disposition home or self-care (01) ==
LOC: HO.MAMMO 10:55
PROVIDERS: PCP Family Medicine; Visit Provider Family Medicine
DX: Z12.31 Encounter for screening mammogram for malignant neoplasm of breast (principal)
CPT/HCPCS: 77063; 77067

== ENCOUNTER → 2025-06-09 11:00 | Outpatient (BNV) | payer MEDICARE, MEDICAID, SELFPAY | PROVIDERS: PCP Family Medicine; Visit Provider Internal Medicine | DX: Z12.31 Encounter for screening mammogram for malignant neoplasm of breast (principal) | CPT/HCPCS: 77063; 77067 ==